=== PATIENT | female | born 1960 | race Caucasian/White ===

== ENCOUNTER 2016-04-11 11:28 | Inpatient (IN) ==
[2016-04-11 12:03] LABS: BE -0.6 mmoll (-3.0-3.0); BLOOD TYPE ARTERIAL; METHB 0.7 % (0.0-1.5); O2(CT) 7.6 mL/dL (15.0-23.0); SAMPLE BLOOD; SAO2 43.9 % (95.0-100.0); THB 12.6 g/dL (11.5-17.4)
--- NOTE | 2016-04-11 12:19 | PROVIDER DOCUMENTATION ---
HPI-Cardiopulmonary Arrest - General Source: patient, family (son) - History of Present Illness-C/P Arrest Reason for Code Blue?: full arrest Witnessed arrest?: Yes Noted by:: nurse Bystander CPR?: No CPR initiated before doctor arrival?: Yes Down-time before ACLS?: unknown Initial Findings: unresponsive Treatment initiated prior to doctor arrival?: Initiated CPR/thumper - Pre-hospital Treatment EMS Initial Findings:: alert EMS Initial HR: 70 EMS Initial BP: 150/72 <Shae Norman - Last Filed: 04/11/16 14:52> <Lm Rodriguez - Last Filed: 04/15/16 01:50> - General Chief Complaint: Shortness of Breath Stated Complaint: SOB/COLD SX Time Seen by Provider: 04/11/16 12:15 Allergies/Adverse Reactions: Allergies Allergy/AdvReac Type Severity Reaction Status Date / Time cephalexin monohydrate * Allergy Intermediate HIVES Verified 11/07/15 22:56 [From Keflex] latex AdvReac Intermediate RASH Verified 11/07/15 22:56 flody AdvReac Intermediate RASH Uncoded 04/11/16 17:22 Home Medications: Home Medication List Medication Instructions Recorded Confirmed Last Taken Type Aspirin 325 mg PO QPM 07/12/12 04/11/16 11/04/15 21:00 History SIMVAstatin [Zocor] 40 mg PO QHS 07/12/12 04/11/16 11/06/15 21:00 History Insulin Regular, Human [Novolin R] 5 unit SUBQ TID AC 11/20/12 04/11/16 20:00 History Ranolazine E.r. [Ranexa] 500 mg PO Q12H #0 tablet 11/24/12 04/11/16 11/06/15 21: 00 Rx LISINOpril [Prinivil] 10 mg PO QHS 11/01/13 04/11/16 11/06/15 21:00 History Hum Insulin NPH/Reg Insulin Hm 24 unit SQ BID 06/21/14 04/11/16 11/06/15 20:00 History [Novolin 70-30 100 Unit/ml Vial] Carvedilol Phosphate [Coreg Cr] 80 mg PO DAILY 08/16/14 04/11/16 11/06/15 09:00 History Clopidogrel [Plavix] 75 mg PO QAM #0 tablet 08/31/14 04/11/16 11/02/15 09:00 Rx Isosorbide Mononitrate E.r. [Imdur] 60 mg PO QAM #0 tablet 08/31/14 04/11/16 09:00 Rx Hydrocodone/APAP 10 mg/325 mg 1 each PO Q4H PRN PRN #30 tablet 07/25/15 Unknown Rx [Mobile-10] Penicillin V Potassium [Penicillin 500 mg PO BID 11/07/15 04/11/16 11/06/15 21: 00 History V Potassium] - History of Present Illness-C/P Arrest Initial Comments: Pt is 56 y/o F presents to the ED with SOB. Nurse states the Pt went to the bathroom and came back out and coded. Pt came in for SOB and dizziness. Pt is a dialysis patient. Pt had dialysis yesterday, April 10. Pt was intubated at 1148. Pt was given an epi at 1151. Compressions stopped at 1152 and no pulse felt per Dr. Rodriguez and compressions resumed. Pt was given another epi at 1156. Compression stopped at 1157 and faint pulse found per Dr. Rodriguez and compressions resumed. Pt was given an epi at 1200. Compressions were stopped at 1203 and pulse was found per Dr. Rodriguez. (Shae Norman) Review of Systems - Adult - REVIEW OF SYSTEMS - ADULT Constitutional: denies: chills, fever Eyes: denies: blurred vision, double vision Ears, Nose, Mouth & Throat: reports: other (tube in place). denies: ear pain, nose pain, throat pain Cardiovascular: denies: chest pain, heart murmur, irregular heart rate Respiratory: denies: cough, shortness of breath, wheezing Gastrointestinal: denies: abdominal pain, diarrhea, nausea, vomiting Genitourinary: denies: dysuria, hematuria Musculoskeletal: denies: bone pain, joint pain, neck pain Integumentary: denies: hives, itching, rash Neurological: denies: dizziness/vertigo, headache/migraines Psychiatric: reports: no symptoms reported Endocrine: reports: no symptoms reported Hematologic/Lymphatic: reports: no symptoms reported Allergic/Immunologic: reports: no symptoms reported All Other Systems: Reviewed and Negative <Prisca Normanomi - Last Filed: 04/11/16 14:52> Past History - Adult - PAST MEDICAL HISTORY-ADULT Review of Records: reports: Old Records Reviewed, Nursing Assessment Review, Medications Reviewed, Social history reviewed & non-contributory. Major Childhood Illnesses: reports: denies history Cardiovascular: reports: CAD, CHF, HTN, NM, other (Defibillator) Respiratory: reports: COPD Gastrointestinal: reports: denies history Obstetrical/Gynecological: reports: denies history Genitourinary: reports: kidney disease Musculoskeletal: reports: denies history Neurological: reports: denies history Endocrine/Immune: reports: Diabetes, thyroid disorder Other Conditions: reports: denies history - PRIOR SURGERIES/PROCEDURES Surgical/Procedure History: reports: cholecystectomy, cardiac stent, , tonsillectomy, other (defibillator) - PRIOR HOSPITALIZATIONS Prior Hospitalizations: reports: for similar symptoms - IMMUNIZATION STATUS Childhood Immunizations: See Nurse Assessment Flu Vaccine: See Nurse Assessment - FAMILY HISTORY Family History: reviewed, not pertinent - SOCIAL HISTORY Smoking: denies Substance Use: denies Living Situation: family <Prisca Normanomi - Last Filed: 04/11/16 14:52> Physical Exam-General - PHYSICAL EXAM-ADULT Initial Vital Signs Reviewed: Yes - CONSTITUTIONAL General Appearance: moderate distress. negative: appears well (ill in appearance), alert - EYES Eyes: PERRL/EOMI, fundi clear, no AV nicking, pale conjunctivae - HEAD, EARS, NOSE, MOUTH & THROAT HENMT: other (tube in place). negative: moist mucous membranes (dry) - NECK Neck: full range of motion, supple - RESPIRATORY Respiratory: other (tube in place. MERCHANDISING COORDINATOR give resp with ambu bag) - CARDIOVASCULAR Cardiovascular: normal peripheral pulses, regular rate, rhythm, no edema, no gallop, no JVD, no murmur - GASTROINTESTINAL (ABDOMEN) Abdominal Exam: normal bowel sounds, soft, no organomegaly, no pulsatile mass, distended - LYMPHATIC Lymphatic: no adenopathy - MUSCULOSKELETAL Extremity: no pedal edema, normal capillary refill, pelvis stable - SKIN Integumentary: cyanosis, pallor - PSYCHIATRIC Psych/Mental Status: negative: normal mood/affect, oriented x 3 <Shae Norman - Last Filed: 04/11/16 14:52> Progress - REASSESSMENT Reassessment #1 Time Reassessed: 12:49 Status: worsening (Compressions started at 1249 and epi given at 1241) Reassessment Comment: Pt pulse rate dropped. Dr. Rodriguez states give epi. Reassessment #2 Time Reassessed: 12:20 Status: worsening (Compressions started at 1221) Reassessment Comment: Pt pulse rate dropped Dr. Rodriguez at bedside - EKG 1 Time of EKG reading by physician:: 12:14 EKG Read and Signed by:: Lm Rodriguez EKG Interpretation (*Must complete 3 of following elements*): Abnormal Rate: 105 Rhythm: sinus tachycardia with fusion complexes Comments: left axis deviation; LBBB 2 Time of EKG reading by physician:: 14:27 EKG Read and Signed by:: Lm Rodriguez EKG Interpretation (*Must complete 3 of following elements*): Abnormal (cannot rule out septal infarct, age undetermined) Rate: 73 Rhythm: normal sinus rhythm Comments: left axis deviation; nonspecific intraventricular block - XRAY 1 XRAY: Bilateral XRAY Study: Chest Impression: Abnormal (generalized interstitial marking prominence, which may relate to inerstitial edema or interstitial pneumonitis) XRAY Interpretation: tip of endotracheal tube approximately 2.5 cm above the harriett - CONSULTS/PCP/HOSPITALIST Notification #1 *Consult/PCP/Hospitalist*: Dr. Martínez Time Discussed: 12:15 (Dr. Deleon states will look over Pt's results and will call back. ) Reason/Comments: Dr. Rodriguez consulted with Dr. Deleon about Pt Consult Disposition: other #2 Consult: Transfer Center Time Discussed: 13:19 (Transfer Center will call back with admiting doctor. ) Reason/Comments: Dr. Rodriguez consults with Transfer center about Pt Consult Disposition: other <Shae Norman - Last Filed: 04/11/16 14:52> <Lm Rodriguez - Last Filed: 04/15/16 01:50> - PLAN OF CARE/RESULTS Progress/Plan/Lab Results: Laboratory Tests 04/11/16 04/11/16 04/11/16 12:00 12:17 12:17 WBC 8.42 RBC 4.28 Hgb 13.4 Hct 43.3 MCV 101.2 H MCH 31.3 H MCHC 30.9 L RDW Std Deviation 14.1 Plt Count 93 L MPV 12.1 H Immature Gran % (Auto) 5.3 H Neut % (Auto) 46.6 Lymph % (Auto) 39.2 [place] % (Auto) 6.3 Eos % (Auto) 1.2 Baso % (Auto) 1.4 H Immature Gran # (Auto) 0.45 H Neut # (Auto) 3.92 Lymph # (Auto) 3.30 [place] # (Auto) 0.53 Eos # (Auto) 0.10 Baso # (Auto) 0.12 POC Glucose 234 H D Plasma Lactate 4.0 H Orders Category Date Time Status Saline Loc NOW Care 04/11/16 11:40 Active CHEST-PORTABLE [RAD] Stat Exams 04/11/16 11:40 Ordered ABG [RESP] Routine Lab 04/11/16 11:40 Ordered BLOOD CULTURE [BLDCUL] Stat Lab 04/11/16 11:40 Ordered BNP [PRO B-NATRIURETIC PEPTIDE] Stat Lab 04/11/16 12:38 Ordered CBC WITH DIFF [HEME] Stat Lab 04/11/16 12:17 Completed CK PROFILE [SP CHEM] Stat Lab 04/11/16 12:38 Ordered COMPREHENSIVE METABOLIC PANEL [CHEM] Stat Lab 04/11/16 12:17 Received LACTATE, PLASMA [CHEM] Stat Lab 04/11/16 12:17 Received MAGNESIUM [CHEM] Stat Lab 04/11/16 12:38 Ordered TROPONIN T Stat Lab 04/11/16 12:38 Ordered Dextrose 5%-0.45% NaCl Inj [D5 1/2 Ns] 250 ml Med 04/11/16 13:00 Active Norepinephrine [Levophed] 8 mg IV 2 mcg/min Pulse Oximetry Stat Oth 04/11/16 11:40 Active Vital Signs - 24 hr 04/11/16 11:35 Temperature 98.8 F Pulse Rate 70 Respiratory 20 Rate Blood Pressure 150/72 O2 Sat by Pulse 88 L Oximetry Laboratory Tests 04/11/16 04/11/16 04/11/16 12:00 12:17 12:17 WBC RBC Hgb Hct MCV MCH MCHC RDW Std Deviation Plt Count MPV Immature Gran % (Auto) Neut % (Auto) Lymph % (Auto) [place] % (Auto) Eos % (Auto) Baso % (Auto) Immature Gran # (Auto) Neut # (Auto) Lymph # (Auto) [place] # (Auto) Eos # (Auto) Baso # (Auto) Sodium 131 L Potassium 4.2 Chloride 93 L Carbon Dioxide 21 L Anion Gap 18 BUN 25 H Creatinine 3.0 H Estimated GFR/1.73 m2 16 BUN/Creatinine Ratio 8 Glucose 290 H POC Glucose 234 H D Calculated Osmolality 278 Calcium 11.1 H Total Bilirubin 0.90 AST 27 ALT 12 Alkaline Phosphatase 181 H Total Protein 6.7 Albumin 3.8 Globulin 3.0 Albumin/Globulin Ratio 1.0 Plasma Lactate 4.0 H 04/11/16 12:17 WBC 8.42 RBC 4.28 Hgb 13.4 Hct 43.3 MCV 101.2 H MCH 31.3 H MCHC 30.9 L RDW Std Deviation 14.1 Plt Count 93 L MPV 12.1 H Immature Gran % (Auto) 5.3 H Neut % (Auto) 46.6 Lymph % (Auto) 39.2 [place] % (Auto) 6.3 Eos % (Auto) 1.2 Baso % (Auto) 1.4 H Immature Gran # (Auto) 0.45 H Neut # (Auto) 3.92 Lymph # (Auto) 3.30 [place] # (Auto) 0.53 Eos # (Auto) 0.10 Baso # (Auto) 0.12 Sodium Potassium Chloride Carbon Dioxide Anion Gap BUN Creatinine Estimated GFR/1.73 m2 BUN/Creatinine Ratio Glucose POC Glucose Calculated Osmolality Calcium Total Bilirubin AST ALT Alkaline Phosphatase Total Protein Albumin Globulin Albumin/Globulin Ratio Plasma Lactate (Shae Norman) Procedures - INTUBATION Time of Intubation: 11:55 Airway Evaluation: Obese Intubation Method: orotracheal Equipment: ETT Tube Size (cm): 8.0 Pretreated with 100% Oxygen?: Yes Breath Sounds after Intubation: equal ETT Primary Tube Confirmation: Capnometry CO2 Change, Direct Visualization, Chest Rise and Fall Intubation Complications: no complications <Lm Rodriguez - Last Filed: 04/15/16 01:50> Departure - Departure Time of Disposition Order: 13:24 Certified Medical Emergency: Emergent <Shae Norman - Last Filed: 04/11/16 14:52> <Lm Rodriguez - Last Filed: 04/15/16 01:50> - Departure DIAGNOSIS: Cardiac arrest, Renal failure Diabetes Qualifiers: Diabetes mellitus type: other specified (including DANNY) Diabetes mellitus complication status: with unspecified complications Diabetes mellitus art department head insulin use: unspecified group home insulin use status Qualified Code(s): E13.8 - Other specified diabetes mellitus with unspecified complications CHF (congestive heart failure) Qualifiers: Congestive heart failure type: unspecified congestive heart failure type Congestive heart failure chronicity: unspecified congestive heart failure chronicity Qualified Code(s): I50.9 - Heart failure, unspecified Disposition: ADMITTED INPATIENT 09 Condition: Stable Attestation - Scribe Verification/Attestation Scribe:: Shae Norman Acting as Scribe for:: Lm Rodriguez Scribe documention review:: This chart was documented by a scribe and accurately reflects the service the provider performed and the decisions made by the provider. <Shae Norman - Last Filed: 04/11/16 14:52> Physician Attestation
[2016-04-11 12:21] LABS: BASO% 1.4 % (0.0-0.8); EOS% 1.2 % (0.0-10.0); HEMATOCRIT 43.3 % (37.0-47.0); HEMOGLOBIN 13.4 g/dL (12.0-16.0); IMM GRAN# 0.45 X1000 (0.0-0.04); IMM GRAN% 5.3 % (0.0-0.5); LYMPH% 39.2 % (20.5-51.1); MANUAL DIFF NEEDED? NO; MCH 31.3 PG (27-31); MCHC 30.9 g/dL (33-37); MCV 101.2 FL (81-99); MONO# 0.53 X1000 (0.11-0.59); MONO% 6.3 % (1.7-9.3); MPV 12.1 FL (7.4-10.4); NEUT% 46.6 % (42.2-75.2); PLT 93 X1000 (130-400); RBC 4.28 XMIL (4.2-5.4)
[2016-04-11] MEDS: LEVOPHED 8 MG in D5 1/2 NS 250 ML IV SCH (12:36)
[2016-04-11 12:42] LABS: ALBUMIN 3.8 g/dL (3.5-5.0); CALCIUM 11.1 mg/dL (8.8-10.2); POTASSIUM 4.2 mmol/L (3.5-5.1); TOTAL BILIRUBIN 0.9 mg/dL (0.20-1.00); TOTAL PROTEIN 6.7 g/dL (6.3-8.3)
--- NOTE | 2016-04-11 13:03 | Diag Imaging Result Document ---
PROCEDURE NAME: CHEST-PORTABLE - 04/11/2016 PORTABLE CHEST: COMPARISON: July 13, 2015. FINDINGS: There is an endotracheal tube with its tip with its tip approximately 2.5 cm above the harriett. There is a 2-lumen right internal jugular central venous catheter which extends to the right atrium. There is stable borderline to mild cardiomegaly. There is a transvenous permanent pacemaker again seen. There is some generalized interstitial marking prominence. This may related to interstitial edema or interstitial pneumonitis. There is no discrete dense consolidation, pleural effusion, or pneumothorax identified. IMPRESSION: 1. Tip of endotracheal tube approximately 2.5 cm above the harriett. 2. Generalized interstitial marking prominence, which may relate to interstitial edema or interstitial pneumonitis.
--- NOTE | 2016-04-11 13:05 | EKG Report ---
Test Performed on : 04/11/2016 12:14:20 PM Test Reason : ER Blood Pressure : / mmHG Vent. Rate : 105 BPM Atrial Rate : 107 BPM P-R Int : 208 ms QRS Dur : 142 ms QT Int : 376 ms P-R-T Axes : 000 -43 105 degrees QTc Int : 496 ms Sinus tachycardia. with fusion complexes Left axis deviation Left bundle branch block Abnormal ECG When compared with ECG of 09-JUL-2015 04:30, fusion complexes are now present premature supraventricular complexes. are no longer present Left bundle branch block is now present Criteria for Anterior infarct are no longer present Criteria for Anterolateral infarct are no longer present Unconfirmed Result
[2016-04-11 13:08] LABS: BE -7.5 mmoll (-3.0-3.0); BLOOD TYPE ARTERIAL; METHB 0.6 % (0.0-1.5); O2(CT) 16.5 mL/dL (15.0-23.0); PCO2(98.6) 43 mmHg (35-45); PO2(98.6) 65 mmHg (60-100); SAMPLE BLOOD; SAO2 89.9 % (95.0-100.0); THB 13.4 g/dL (11.5-17.4); pH(98.6) 7.26 (7.35-7.45)
[2016-04-11 13:12] LABS: MODALITY AMBU BAG
[2016-04-11 13:13] LABS: DRAW SITE L BRACHIAL
[2016-04-11 13:17] LABS: INR 1.19 (0.86-1.15); PROTIME 15.4 Seconds (12.1-15.5); PTT PL 44.1 Seconds (22.6-43.9)
[2016-04-11 13:55] LABS: DRAW SITE R FEMORAL
[2016-04-11 13:56] LABS: ALLEN TEST NO; MODALITY RESUSC BAG; PCO2(98.6) 54 mmHg (35-45); PO2(98.6) 30 mmHg (60-100)
--- NOTE | 2016-04-11 14:52 | EKG Report ---
Test Performed on : 04/11/2016 2:27:18 PM Test Reason : repeat Blood Pressure : / mmHG Vent. Rate : 073 BPM Atrial Rate : 073 BPM P-R Int : 188 ms QRS Dur : 126 ms QT Int : 460 ms P-R-T Axes : 041 -37 104 degrees QTc Int : 506 ms Normal sinus rhythm. Left axis deviation Nonspecific intraventricular block Cannot rule out Septal infarct , age undetermined Abnormal ECG When compared with ECG of 11-APR-2016 12:14, (Unconfirmed) fusion complexes are no longer present Nonspecific intraventricular block has replaced Left bundle branch block Confirmed by Tanner Castañeda MD ([id number]) on 04/22/2016 9:11:06 PM
[2016-04-11] MEDS ORDERED: NS 2,000 ML MISC PRN (14:59)
[2016-04-11] MEDS ORDERED: TIGHT: 0.2 ML/HR MISC PRN (14:59)
[2016-04-11] MEDS ORDERED: HEPARIN IV PRN (14:59)
[2016-04-11] MEDS ORDERED: DUONEB (A & A) INH PRN (15:01)
[2016-04-11] MEDS ORDERED: NS 2,000 ML ONE ×2 (15:17→20:38)
[2016-04-11] MEDS ORDERED: ATIVAN ONE (15:35)
[2016-04-11] MEDS ORDERED: ATIVAN IV ONE (15:48)
[2016-04-11] MEDS: DUONEB (A & A) INH SCH ×3 (16:13→23:36)
[2016-04-11] MEDS: ATIVAN 20 MG in NS 190 ML IV SCH (16:13)
[2016-04-11] MEDS: ZOSYN 2.25 GM/NS 50 ML IV SCH ×2 (16:16→21:24)
[2016-04-11] MEDS: PROTONIX IV SCH (16:16)
[2016-04-11] MEDS: SODIUM CHLORIDE 0.9% INJ SCH (16:16)
[2016-04-11 17:14] LABS: CK INDEX 3.7 (0.0-2.5); CK-MB 7.87 ng/mL (0.0-5.0)
--- NOTE | 2016-04-11 17:21 | CONSULTATION ---
DATE OF CONSULTATION: 04/11/2016 HISTORY OF PRESENT ILLNESS: History was obtained by discussing with staff as well as well as Dr. Corea and patient's . The patient is intubated. A 56-year-old lady with multiple medical problems, cardiac with coronary artery disease, ischemic cardiomyopathy, AICD placement, has been having upper respiratory tract infection with mucoid to mucopurulent expectoration over the last couple of weeks. She was given Levaquin and symptoms of congestion improved slightly, however she still had congestion. She has been undergoing dialysis on a regular basis. Today she was in the emergency room in [facility] when she had a cardiac arrest pulseless and CPR was initiated per standard protocol. The patient was subsequently transferred to [facility]. Electrocardiogram did not reveal any acute ST elevations. Patient is undergoing dialysis. Was hypertensive, is started on Levophed. At the time of my examination blood pressure was 160/80, heart rate 73. REVIEW OF SYSTEMS: Could not be obtained. PAST MEDICAL HISTORY: 1. Coronary artery disease. In 2003 had LAD with PTCA stent placement to the LAD and in 2006 had a bare metal stent to the right coronary artery. 2. Last cardiac catheterization 11/23/2012, LAD had proximal 50%, LAD subsequently was occluded in the midsegment at the site of previous stent. There was a large septal branch involving the lesion from the occlusion and an ostial 80% 1st diagonal, proximal 60%, circumflex has mild to moderate diffuse disease, mid 60% RCA, 50% disease dilatation, mid stent had slight in-stent stenosis with hazy 50-60% lesion. Medical management recommended at that time. 3. Ischemic cardiomyopathy, ejection fraction of 35-40%. 4. AICD placement with [facility] on 09/08/2016 with a generator change on 08/17/2014. 5. Hypertension, hyperlipidemia. 6. Mild aortic stenosis. 7. Diabetes. 8. End-stage renal disease on dialysis. 9. TIA status post carotid Dopplers revealed 0-30% stenosis in 2011. 10. History of DVT in 2012. 11. Cellulitis of lower extremities secondary to cellulitis and sepsis in 2015. 12. Obesity. MEDICATIONS: Included 1. Humulin. 2. Aspirin 325. 3. Lisinopril 10. 4. Simvastatin 40. 5. Isosorbide mononitrate. 6. Plavix 75. 7. Ranexa 500. 8. Coreg CR. ALLERGIES: She is allergic to Neosporin and Keflex. SOCIAL HISTORY: She is a nonsmoker. EXAMINATION: Vital Signs: As above. Jugular venous pressure was normal, 1st and second heart sounds were heard. There was systolic murmur. Respiratory System: Bibasilar inspiratory crepitations. Abdomen: Soft. Central nervous system: Could not be assessed. LABORATORY EXAMINATION: Revealed hemoglobin 13.4, hematocrit 43, platelet count of 93,000. Sodium 131, potassium 4.2, BUN 25, creatinine 3.0, glucose 290. Blood cultures pending. Chest x-ray revealed increase interstitial markings, interstitial edema or pneumonitis. Troponin 1st set 0.048, second set 0.118 in the setting of chronic renal failure. ProBNP elevated at greater than 35,000. ASSESSMENT: Ms. Yvrose Valadez is a 56-year-old lady with known coronary artery disease, left ventricular dysfunction and implantable cardioverter defibrillator placement. Had a cardiac arrest probably pulseless electrical activity and is currently on Levophed, has a blood pressure and heart rate which has been stable. PLAN: 1. The event she had is probably related to ischemia and/or dysrhythmias. She has an AICD. 2. We will have her AICD interrogated. 3. We will get an echocardiogram to assess cardiac and valvular function. 4. We will get serial cardiac enzymes 4 more sets. 5. Currently her blood pressure and heart rate are stable. I have not done any changes to her medication. We will follow hospital course. 6. We will get an echocardiogram to assess cardiac and valvular function. In addition, she has had history of DVT. This episode may be related to thromboembolic phenomena as well low likelihood but we will get venous Dopplers. 7. She is undergoing dialysis and her electrolytes have been stable. 8. She has significant coronary artery disease and we will plan for further testing once she is stable and depending on outcome. 9. She had venous congestion with cough with mucopurulent expectoration and was treated with Levaquin and blood cultures are pending at the present time. Thank you for the consult. Will follow hospital course.
--- NOTE | 2016-04-11 18:03 | HISTORY AND PHYSICAL ---
CHIEF COMPLAINT: Was initially shortness of breath, subsequently she is status post cardiac arrest x3. HISTORY OF PRESENT ILLNESS: She is a 56-year-old female, she came in awake and alert. The patient came in with shortness of breath. Apparently the patient went to go to the bathroom while in the ER and came back and passed out. She is a dialysis patient. She was only dialyzed reportedly 1.2-1.8 L. She was dialyzed the day before admission. She had 3 separate events of cardiac arrest initially around 11:48. She was intubated. She was given epinephrine at 11:51. Compressions were stopped and then resumed. At 11:56 she was given another dose of epinephrine. At that point she was placed on Levophed. Code looks like it lasted 11:48 to 12 :03. The patient is now awake and alert. Does follow some commands. Patient had 2 other episodes and she was stabilized. The patient does have a significant cardiac history as well as COPD. She is end- stage renal. Her chest x-ray looks like she has interstitial edema, cardiomegaly, but she has got right upper lobe airspace disease, possibly right lower lobe. I think she may have infection despite the fact she is afebrile and has no white count. The patient is being transferred to [facility] [place] for ICU care, dialysis, services not available at [place]. Dr. Corea will be assuming care at that facility. PAST MEDICAL HISTORY: 1. CAD. 2. CHF. 3. Hypertension. 4. Defibrillator. 5. COPD. 6. End-stage renal. 7. Diabetes. 8. Hypothyroidism. PAST SURGICAL HISTORY: 1. Graft AICD placement. 2. Cholecystectomy. 3. Debridement. 4. . 5. Tonsillectomy. SOCIAL HISTORY: No tobacco or ethanol. ALLERGIES: Keflex and latex. MEDICATION LIST: Being compiled. REVIEW OF SYSTEMS: Otherwise negative except as outlined in the HPI. PHYSICAL EXAMINATION: VITAL SIGNS: Currently blood pressure 145/71, heart rate 75, respiratory rate of 14, temperature 97.4 degrees, 99%-100%, vent settings have been put in. GENERAL: A well-developed female, in no acute distress. HEAD: Normocephalic, atraumatic. EYES: Pupils equal, round, reactive to light. Extraocular movements are intact. EAR/NOSE/THROAT: She had moist mucous membranes. NECK: Supple. CARDIOVASCULAR: Irregular regular. PULMONARY: Diffuse rhonchi. GI: Soft, nontender, and nondistended. Bowel sounds are positive. EXTREMITIES: No clubbing or cyanosis. LYMPHATICS: No peripheral edema. NEUROLOGICAL: Nonfocal. LABORATORY DATA: White count of 8, hemoglobin and hematocrit 13 and 41, platelets of 93,000, which is a significant drop from baseline from her chemistries. Troponin 0.188. BUN and creatinine 25 and 3. Calcium of 11. BNP of 35,000. EKG showed sinus tach with IVSD, looks like a left bundle, I do not think that is a new finding for her. Yes, she has had a left bundle before. Left bundle apparently was not noted, but she had nearly enough left bundle in July, but that was 2014. In any case, PROBLEM LIST: 1. Acute respiratory failure secondary to volume overload. 2. Possible pneumonia. 3. Acute respiratory failure - She is on the ventilator. I anticipate she will need emergent dialysis. I am going to empirically cover her with Zosyn at this point. Although she does not have a white count, I think she may have developed an infiltrate. We will get Pulmonary opinion on ventilatory management. 4. Congestive heart failure exacerbation. We will check serial enzymes. She did get CPR so this may not be as meaningful. Repeat her echo and follow. Cardiology is consulted. 5. End-stage renal. Dialysis will be per Renal Service. They have been consulted. We will continue to follow very closely. The patient is critically ill. TIME SPENT: 35 minute critical care time. MTDD
[2016-04-11] MEDS: HUMALOG SUBQ SCH ×2 (18:10→21:24)
[2016-04-11 18:13] LABS: ALLEN TEST YES; BE -2.3 mmoll (-3.0-3.0); BLOOD TYPE ARTERIAL; DRAW SITE L RADIAL; METHB 1.2 % (0.0-1.5); O2(CT) 18.2 mL/dL (15.0-23.0); PCO2(98.6) 38 mmHg (35-45); PO2(98.6) 59 mmHg (60-100); SAMPLE BLOOD; SRATE 14 BPM; THB 14.5 g/dL (11.5-17.4); TVOL 600 mL; pH(98.6) 7.38 (7.35-7.45)
[2016-04-11 18:15] LABS: MODALITY VENTILATOR
[2016-04-11] MEDS ORDERED: SODIUM BICARBONATE 8.4% ONE (18:30)
[2016-04-11] MEDS ORDERED: NS ONE (18:30)
[2016-04-11] MEDS ORDERED: D50W SYRINGE ONE (18:30)
[2016-04-11] MEDS ORDERED: CALCIUM CHLORIDE SYRINGE ONE (18:30)
[2016-04-11] MEDS ORDERED: EPINEPHRINE SYRINGE ONE (18:30)
--- NOTE | 2016-04-11 19:37 | CONSULTATION ---
DATE OF CONSULTATION: 04/11/2016 PULMONARY CONSULTATION REQUESTING PHYSICIAN: Manuel Linares M.D. REASON FOR CONSULTATION: Status post cardiopulmonary arrest. HISTORY OF PRESENT ILLNESS: Ms. Valadez is a 56-year-old white female with multivessel coronary artery disease, ischemic cardiomyopathy, end-stage renal disease on hemodialysis, status post AICD placement, who presented to [facility] with shortness of breath. The patient had not missed her dialysis. The patient was returning from the bathroom when she sustained cardiopulmonary arrest. The patient received multiple courses of epinephrine along with CPR. She was intubated and her blood pressure and heart rhythm were stabilized. Rhythm preceding this CPR is not clear because most no strips were available for review. Exact time of CPR is difficult to document. Upon arrival to [facility], patient apparently attempted to remove the endotracheal tube and would squeeze hand to command. The patient has subsequently completed hemodialysis with approximately 4 L removed. PAST MEDICAL HISTORY: 1. Extensive coronary artery disease with prior stent placements. Please see Juan's note which was reviewed. 2. Ischemic cardiomyopathy. 3. Status post AICD placement. 4. History of deep vein thrombosis. 5. Diabetes mellitus. 6. Morbid obesity. 7. End-stage renal disease on hemodialysis. SOCIAL HISTORY: The patient is a never smoker. Alcohol use listed. FAMILY HISTORY: Noncontributory to current presentation. REVIEW OF SYSTEMS: Cannot be obtained. PHYSICAL EXAMINATION: General: Reveals an obese, white female on mechanical ventilation. She appears much older than her stated age. Vital Signs: BP 160/77 on vasopressors. Heart rate 77 and regular, respiration rate 14, oxygen saturation 100%. BMI 44.4. HEENT: Pupils are equal but sluggish. Oropharynx is clear but evaluation is limited with endotracheal tube in place. Neck: Supple. Chest: Reveals good air entry bilaterally. Cardiac Examination: Distant heart sounds. Regular rhythm. Abdomen: Obese and soft. Extremities: Reveal chronic edema with some venous stasis changes. LABORATORIES: Chest x-ray reveals endotracheal tube in good position. Arterial blood gas reveals a pH 7.38, pCO2 of 38, PO2 of 59, on 50% FiO2, rate of 14, tidal volume 600, PEEP of 7. White blood count 8.42, hemoglobin 13.4. Chemistries: proBNP is markedly elevated at greater than 35,000. Troponin has had sequential increase from 0.048 to 0.118 to 0.212. D-dimer elevated at 2.52. IMPRESSION: A 56-year-old with end-stage renal disease, ischemic cardiomyopathy, morbid obesity, prior deep vein thrombosis, positive D-dimer who has sustained a cardiopulmonary arrest. The nurse at the bedside reports that Dr. Martinez has interrogated the AICD and no etiology for cardiac arrest has been identified from a cardiac standpoint. With her acute cardiac arrest, hypoxemic and hypercapnic acute respiratory failure, I recommend proceeding with CT pulmonary angiogram. RECOMMENDATIONS: 1. Continue full ventilatory support. 2. Maintain oxygen saturation between 92 and 96%. 3. CT pulmonary angiogram. 4. Routine gastric acid suppression. 5. Sputum for C and S. 6. Additional recommendations pending hospital course.
[2016-04-11 20:52] LABS: CK INDEX 3.5 (0.0-2.5); CK-MB 8.18 ng/mL (0.0-5.0)
[2016-04-11] MEDS ORDERED: COREG PO SCH (21:00)
[2016-04-11] MEDS ORDERED: HEPARIN SUBQ SCH (21:00)
[2016-04-11] MEDS ORDERED: HUMULIN R SUBQ SCH ×2 (21:00)
[2016-04-11 22:24] LABS: CK INDEX 3.2 (0.0-2.5); CK-MB 7.76 ng/mL (0.0-5.0)
[2016-04-12 02:05] LABS: CK INDEX 2.4 (0.0-2.5); CK-MB 7.66 ng/mL (0.0-5.0)
[2016-04-12] MEDS: HUMALOG SUBQ SCH ×6 (02:07→20:25)
[2016-04-12] MEDS: ATIVAN 20 MG in NS 190 ML IV SCH ×2 (02:16→13:18)
[2016-04-12] MEDS: ZOSYN 2.25 GM/NS 50 ML IV SCH ×4 (03:05→20:11)
[2016-04-12] MEDS: DUONEB (A & A) INH SCH ×6 (03:14→22:32)
[2016-04-12 04:47] LABS: ALLEN TEST YES; BE 0.1 mmoll (-3.0-3.0); BLOOD TYPE ARTERIAL; DRAW SITE R RADIAL; METHB 0.9 % (0.0-1.5); O2(CT) 17.7 mL/dL (15.0-23.0); PCO2(98.6) 39 mmHg (35-45); PO2(98.6) 116 mmHg (60-100); SAMPLE BLOOD; SAO2 98.5 % (95.0-100.0); SRATE 14 BPM; TVOL 600 mL; pH(98.6) 7.41 (7.35-7.45)
[2016-04-12 04:48] LABS: MODALITY VENTILATOR
[2016-04-12 05:14] LABS: ALBUMIN 2.6 g/dL (3.5-5.0); CALCIUM 8.7 mg/dL (8.8-10.2); POTASSIUM 4.8 mmol/L (3.5-5.1)
--- NOTE | 2016-04-12 06:52 | Diag Imaging Result Document ---
PROCEDURE NAME: HEAD W/O CONTRAST - 04/11/2016 CT HEAD WITHOUT CONTRAST: COMPARISON: None available. FINDINGS: There is mild patchy low attenuation in the periventricular and subcortical white matter suggesting mild microangiopathy. There is no definite acute infarct given the limited sensitivity of CT versus MRI. There is no discrete intracranial mass, mass effect, or intracranial hemorrhage. There is no evidence of hydrocephalus. Surrounding soft tissues are grossly unremarkable. There is fairly extensive left maxillary and left frontal sinus mucosal disease and milder bilateral ethmoid sinus mucosal disease. IMPRESSION: 1. Chronic-appearing white matter changes but no evidence of acute intracranial pathology by CT. 2. Paranasal sinus mucosal disease.
--- NOTE | 2016-04-12 06:52 | Diag Imaging Result Document ---
PROCEDURE NAME: ANGIOGRAM/PULMONARY ARTERIES - 04/11/2016 CTA CHEST: COMPARISON: None available. FINDINGS: There is excessive respiratory motion artifact. This significantly limits the sensitivity for detecting small pulmonary emboli, especially at the lung bases. However, no large central pulmonary embolus can be identified. There is patchy aortic atherosclerotic calcification. There is no evidence of aortic aneurysm. There is extensive coronary artery calcification. There is cardiomegaly. An ET tube is in place just above the harriett. There are shotty nonspecific mediastinal and hilar lymph nodes. No significant mediastinal fluid collection is identified. There are dense patchy infiltrates seen throughout both lungs but more extensive on the right. This is probably a combination of infectious infiltrates and pulmonary edema. ARDS cannot be excluded. There are small bilateral pleural effusions as well as bibasilar atelectasis. IMPRESSION: 1. Extensive dense patchy infiltrates seen throughout both lungs but worst on the right. Please see above discussion. Infectious infiltrate and possibly ARDS should be considered. 2. Small bilateral effusions and bibasilar atelectasis. 3. Cardiomegaly. 4. Although very limited due to excessive respiratory motion artifact, no large central pulmonary embolism can be identified. Smaller emboli at the distal pulmonary artery branches may not be detectable. 5. Other incidental/nonacute findings detailed above.
[2016-04-12 07:05] LABS: MANUAL DIFF NEEDED? NO
[2016-04-12 07:15] LABS: BASO% 0.2 % (0.0-0.8); EOS# 0.01 X1000 (0.0-0.7); EOS% 0.1 % (0.0-10.0); HEMATOCRIT 38.1 % (37.0-47.0); HEMOGLOBIN 12.3 g/dL (12.0-16.0); IMM GRAN# 0.04 X1000 (0.0-0.04); IMM GRAN% 0.4 % (0.0-0.5); LYMPH% 9.9 % (20.5-51.1); MCH 31.9 PG (27-31); MCHC 32.3 g/dL (33-37); MCV 98.7 FL (81-99); MONO# 0.78 X1000 (0.11-0.59); MONO% 8.6 % (1.7-9.3); NEUT% 80.8 % (42.2-75.2); PLT 89 X1000 (130-400); RBC 3.86 XMIL (4.2-5.4)
[2016-04-12 07:58] LABS: CK INDEX 2.1 (0.0-2.5); CK-MB 7.54 ng/mL (0.0-5.0)
[2016-04-12] MEDS ORDERED: NS 3,000 ML ONE (08:11)
--- NOTE | 2016-04-12 08:38 | Diag Imaging Result Document ---
PROCEDURE NAME: CHEST-PORTABLE - 04/12/2016 SINGLE FRONTAL RADIOGRAPH OF THE CHEST: COMPARISON: 04/11/2016. FINDINGS: ET tube is stable. Right Vas cath is stable. Inspiration is suboptimal. Increased interstitial markings bilaterally, suggesting edema, most likely, plus or minus pneumonia, is approximately stable. No new consolidation is identified. Cardiac silhouette is stable. IMPRESSION: Essentially stable chest.
[2016-04-12] MEDS ORDERED: PLAVIX PO SCH (09:00)
[2016-04-12] MEDS ORDERED: NS 2,000 ML ONE (11:07)
[2016-04-12] MEDS: LOVENOX SUBQ SCH (11:13)
--- NOTE | 2016-04-12 11:39 | PROGRESS NOTE ---
DATE: 04/12/2016 SUBJECTIVE: The patient did well through the night. Stayed in sinus rhythm. Dropped her blood pressure a little bit when we started dialysis this morning. We put her back on her Levophed. OBJECTIVE: She remains afebrile, temperature 94.5, pulse 56, respirations 28, blood pressure 118/75. Lungs are clear in all lung reveles. Cardiovascular: Regular rate and rhythm without murmur or S3. Abdomen: Soft. Skin is warm and dry. Good urine output, 4418 mL. DIAGNOSTIC DATA: Labs reviewed from this morning. White count is 9070, hematocrit 38, platelet count 89,000. Chemistries looked good, sodium 133, potassium 4.8, chloride 94, bicarb 20, BUN is 38, creatinine 3.3, blood sugar is 123, 113 and 124, so it looked good. Chest x-ray from this morning essentially stable chest. ET tube is stable. Right Vas-Cath stable. Inspiration suboptimal, increased interstitial markings bilaterally suggesting edema, likely plus or minus pneumonia, approximately stable. No new consolidation. ASSESSMENT AND PLAN: 1. This is a 57 year old with multivessel coronary artery disease, ischemic cardiomyopathy, end stage renal disease on hemodialysis, status post AICD placement, who presented to [place] and went into respiratory failure. She is complaining of shortness of breath. The patient had not missed her dialysis. She had cardiopulmonary arrest at [place] and was sent over here. She has a history of prior deep venous thrombosis with positive D-dimer. Apparently Dr. Martinez has interrogated the AICD, no etiology for cardiac arrest, arrhythmia or ventricular tachycardia noted. So she had a cardiac arrest, hypoxemic and hypercapnic acute respiratory failure. Wanted Dr. Kaye to proceed with CT, pulmonary angiogram. Continue full ventilatory support, maintain oxygen saturation 92% to 96%. See if we can get a CT angiogram. Routine gastric acid suppression. CT of her head from yesterday was unremarkable. 2. End stage renal disease. Continue hemodialysis. Appears to have pulmonary venous hypertension. Continue to try and hemofiltrate and get some fluid off. 3. Nasal sinus mucosal thickening and also treating for pneumonia. Continue present antibiotics. The patient is on Zosyn, Protonix 40 mg q.24 hours.
[2016-04-12 13:59] LABS: CK-MB 6.52 ng/mL (0.0-5.0)
[2016-04-12] MEDS: LEVOPHED 8 MG in D5 1/2 NS 250 ML IV SCH (14:24)
--- NOTE | 2016-04-12 14:52 | CONSULTATION ---
DATE OF CONSULTATION: 04/12/2016 REASON FOR CONSULTATION: Evaluation and in treatment in a patient with respiratory failure and end-stage renal disease. HISTORY OF PRESENT ILLNESS: Ms Valadez is a 56-year-old, white female. I saw her on Thursday at her routine dialysis appointment. At that time, she was complaining of a cough and posterior nasal drip as well. She had actually been treated with Levaquin by her primary care doctor and really derived no benefit from that, and had called our office on Thursday evening asking for new treatment. I had declined to give another antibiotic until I could talk with her on rounds. She has not been having fever, just coughing severely, and it happens in the daytime and at nighttime. She does have sputum production which she states she can differentiate from when it comes from her chest versus when it comes firmer her sinuses. No chest pain. She does have some dyspnea with exertion. At that time, I recommended symptomatic treatment for her upper airway symptoms, but that if she needed another antibiotic, she needed to go to the emergency room and be evaluated with a chest x-ray, etc. She presented to [place] [facility] on Thursday where she was awake and alert, but complained of shortness of breath. Apparently she got up and went to the bathroom, and on return lost consciousness. This led to subsequent cardiac arrest and she had multiple episodes of treatment with chest compressions and resuscitation medications, including epinephrine. She was intubated of course. Because of her severe medical illness, she was transferred from [place] to [facility] ICU. She was evaluated by Dr. Kaye, who had concern about pulmonary embolus given her history of DVT and PTE. CT of the chest was performed. This study was of inadequate quality to differentiate presence of pulmonary emboli. She had dense patchy infiltrates and small effusions. No description of pulmonary edema per se. In this context, she has been treated with empiric broad-spectrum antibiotics, full vent support, sedation as needed. We performed hemodialysis yesterday and achieved 4 L of fluid removal. This morning, she is placed on SLEDD and is thus far dialyzed for 3 hours and had 1 L of ultrafiltration. Difficulty with her blood flow has resulted in clotting of the filter. PAST MEDICAL HISTORY: 1. Obesity. 2. End-stage renal disease. 3. Diabetes. 4. Coronary artery disease. 5. Implantable defibrillator. 6. COPD. HOME MEDICATIONS: Simvastatin, aspirin, insulin, Ranexa, lisinopril, carvedilol, clopidogrel, isosorbide, hydrocodone, pen-VK. ALLERGIES: Cephalexin and latex. SOCIAL HISTORY/REVIEW OF SYSTEMS/FAMILY HISTORY: Not otherwise obtainable at this time. PHYSICAL EXAMINATION: Vital Signs: Blood pressure 159/82 on Levophed, heart rate 62, respirations 14, afebrile. General: She is an obese, white female, sedated on the ventilator. Skin: Warm and dry. Eyes: Conjunctivae are pink and somewhat edematous. Pupils are equal, 2 mm. Eyes are roving. Mouth: Oropharynx is clear, moist. Neck: Neck veins are not visible. Trachea is midline. Heart: Regular without gallops or murmurs. Lungs: Have equal breath sounds. A few diffuse crackles. Abdomen: Obese and soft. Bowel sounds are present. No organomegaly or masses or bruits. Extremities: Have 1+ to 2+ edema. No clubbing or cyanosis. Edema is certainly better than baseline. LABORATORY DATA: Sodium 133, potassium 4.8, chloride 97, bicarbonate 20, BUN 38, creatinine 3.3. IMPRESSION: 1. End-stage kidney disease. Dialysis as above. We will discontinue her hemodialysis today and instill cath flow in her hemodialysis catheter. 2. Electrolytes are acceptable. 3. Acid base, in target. 4. Respiratory failure. Oxygenation is improved on the ventilator. 5. Status post cardiac arrest. Continue supportive care.
[2016-04-12] MEDS: SODIUM CHLORIDE 0.9% INJ SCH (15:39)
[2016-04-12] MEDS: PROTONIX IV SCH (15:39)
[2016-04-13] MEDS: ATIVAN 20 MG in NS 190 ML IV SCH (00:41)
[2016-04-13] MEDS: HUMALOG SUBQ SCH ×6 (02:00→21:15)
[2016-04-13] MEDS: ZOSYN 2.25 GM/NS 50 ML IV SCH ×4 (03:02→21:15)
[2016-04-13] MEDS: DUONEB (A & A) INH SCH ×6 (03:13→22:40)
[2016-04-13 04:33] LABS: ALLEN TEST YES; BE -4.7 mmoll (-3.0-3.0); BLOOD TYPE ARTERIAL; DRAW SITE R RADIAL; METHB 1.4 % (0.0-1.5); O2(CT) 14.6 mL/dL (15.0-23.0); PCO2(98.6) 30 mmHg (35-45); PO2(98.6) 168 mmHg (60-100); SAMPLE BLOOD; SAO2 98.3 % (95.0-100.0); SRATE 14 BPM; THB 10.6 g/dL (11.5-17.4); TVOL 600 mL; pH(98.6) 7.41 (7.35-7.45)
[2016-04-13 04:34] LABS: MODALITY VENTILATOR
[2016-04-13 05:49] LABS: MANUAL DIFF NEEDED? NO
[2016-04-13 06:06] LABS: BASO% 0.3 % (0.0-0.8); EOS# 0.07 X1000 (0.0-0.7); EOS% 0.9 % (0.0-10.0); HEMATOCRIT 33.5 % (37.0-47.0); HEMOGLOBIN 10.6 g/dL (12.0-16.0); IMM GRAN# 0.03 X1000 (0.0-0.04); IMM GRAN% 0.4 % (0.0-0.5); LYMPH# 1.01 X1000 (1.2-3.4); MCH 31.7 PG (27-31); MCHC 31.6 g/dL (33-37); MCV 100.3 FL (81-99); MONO# 0.64 X1000 (0.11-0.59); MONO% 8.3 % (1.7-9.3); MPV 12.7 FL (7.4-10.4); NEUT% 77.1 % (42.2-75.2); PLT 92 X1000 (130-400); RBC 3.34 XMIL (4.2-5.4)
--- NOTE | 2016-04-13 08:48 | PROGRESS NOTE ---
DATE: 04/13/2016 SUBJECTIVE: Ms. Valadez is comfortable, resting comfortably. Appears to be breathing comfortably, intubated. PHYSICAL EXAMINATION: Vital Signs: Temperature 98.2, pulse 70, respirations 20, blood pressure 120/56. HEENT: Pupils are equal and reactive. CVP is less than 6 cm. Lungs: Anterolateral clear. Cardiovascular Examination: Regular rhythm and rate without murmur or S3. Abdomen: Soft. Skin: Warm and dry. Is and Os: Urine output was 1200 and 1300 mL. LABORATORY DATA: White count 7750, hematocrit 33, platelet count 92,000. Blood sugars 125, 117, 147. ASSESSMENT AND PLAN: 1. End-stage kidney disease. Continue dialysis. Try and decrease pulmonary venous hypertension. 2. Status post arrest, sounds like it was predominantly respiratory arrest. On the ventilator, wean as able. 3. Electrolytes appear stable. Recheck. 4. We did obtain an echocardiogram to assess left ventricular function. 5. History of coronary artery disease. 6. I presume she may have had some active ischemia during this event. We will plan on further testing when able. 7. Review of orders. She is still on Zosyn, breathing treatments with albuterol, Protonix 40 mg intravenous every 24 hours. Note, she had a pulmonary arteriogram on the . A dense patchy infiltrate was seen through both lungs but worse on the right. Infectious process, possible acute respiratory distress syndrome to be considered. Small bilateral pleural effusions, bibasilar atelectasis. No sign of pulmonary thromboemboli. Chest x-ray from yesterday, essentially stable chest.
[2016-04-13 08:57] LABS: MANUAL DIFF NEEDED? NO
[2016-04-13 09:22] LABS: BASO% 0.3 % (0.0-0.8); EOS# 0.05 X1000 (0.0-0.7); EOS% 0.7 % (0.0-10.0); HEMATOCRIT 34.1 % (37.0-47.0); HEMOGLOBIN 10.8 g/dL (12.0-16.0); IMM GRAN# 0.03 X1000 (0.0-0.04); IMM GRAN% 0.4 % (0.0-0.5); LYMPH# 1.06 X1000 (1.2-3.4); LYMPH% 15.4 % (20.5-51.1); MCH 31.6 PG (27-31); MCHC 31.7 g/dL (33-37); MCV 99.7 FL (81-99); MONO# 0.67 X1000 (0.11-0.59); MONO% 9.7 % (1.7-9.3); MPV 12.1 FL (7.4-10.4); NEUT% 73.5 % (42.2-75.2); PLT 84 X1000 (130-400); RBC 3.42 XMIL (4.2-5.4)
[2016-04-13] MEDS: LOVENOX SUBQ SCH (09:25)
[2016-04-13 09:27] LABS: ALBUMIN 2.7 g/dL (3.5-5.0); CALCIUM 8.5 mg/dL (8.8-10.2); POTASSIUM 4.3 mmol/L (3.5-5.1); TOTAL BILIRUBIN 1.01 mg/dL (0.20-1.00); TOTAL PROTEIN 5.3 g/dL (6.3-8.3)
--- NOTE | 2016-04-13 10:18 | Diag Imaging Result Document ---
PROCEDURE NAME: CHEST-PORTABLE - 04/13/2016 SINGLE FRONTAL RADIOGRAPH OF THE CHEST: COMPARISON: 04/12/2016. FINDINGS: ET tube is in stable position. Right vas cath is stable. Inspiration is suboptimal. Bilateral infiltrates, more prominent on the right is again noted. There may be a slight increase in density at the right lung base suggesting worsening infiltrate. This may be due to differences in inspiration, however. No other new consolidation is identified. Cardiac silhouette is stable. IMPRESSION: Slight increase in density of the infiltrate at the right lung base. The chest is stable otherwise.
[2016-04-13] MEDS: DIPRIVAN 1% 100 ML IV SCH ×2 (10:20→22:02)
--- NOTE | 2016-04-13 11:14 | ECHO REPORT ---
ORDER DATE: 04/12/2016 ECHOCARDIOGRAPHIC MEASUREMENTS: 1. Interventricular septum 0.8, left ventricular posterior wall 0.8, diastolic diameter 5.8, left atrium 3.6, aorta 3.2. 2. Left ventricle is mildly dilated with an estimated ejection fraction of 35%. There is global hypokinesis. In addition, there is apical akinesis. 3. Aortic valve leaflets are trileaflet. Mitral valve was normal. Tricuspid valve was normal. Pulmonic valve was normal. 4. There is no aortic stenosis. There is trace aortic regurgitation. There is mild mitral regurgitation. 5. There is mitral annular calcification. 6. Mild tricuspid regurgitation. Peak velocity across the tricuspid valve was 2.8 m/sec. Pulmonary artery systolic pressure of 42 mmHg. 7. Pacing leads are noted in the right chamber. 8. There is no pericardial effusion or obvious intracardiac mass or thrombus seen.
[2016-04-13] MEDS: PROTONIX IV SCH (15:21)
[2016-04-13] MEDS: SODIUM CHLORIDE 0.9% INJ SCH (15:21)
[2016-04-13] MEDS: LEVOPHED 8 MG in D5 1/2 NS 250 ML IV SCH (17:03)
[2016-04-13] MEDS ORDERED: CALAMINE LOTION TOP PRN (18:23)
[2016-04-13] MEDS ORDERED: CALMOSEPTINE OINTMENT TOP PRN ×2 (18:45→19:04)
[2016-04-14] MEDS: HUMALOG SUBQ SCH ×6 (01:39→20:28)
[2016-04-14] MEDS: ZOSYN 2.25 GM/NS 50 ML IV SCH ×5 (03:02→20:27)
[2016-04-14] MEDS: DUONEB (A & A) INH SCH ×6 (03:14→23:21)
[2016-04-14 04:11] LABS: MANUAL DIFF NEEDED? NO
[2016-04-14 04:27] LABS: ALLEN TEST YES; BE -2.9 mmoll (-3.0-3.0); BLOOD TYPE ARTERIAL; DRAW SITE R RADIAL; O2(CT) 19.8 mL/dL (15.0-23.0); PCO2(98.6) 38 mmHg (35-45); PO2(98.6) 116 mmHg (60-100); SAMPLE BLOOD; SAO2 98.6 % (95.0-100.0); SRATE 10 BPM; THB 14.6 g/dL (11.5-17.4); TVOL 600 mL; pH(98.6) 7.37 (7.35-7.45)
[2016-04-14 04:29] LABS: MODALITY VENTILATOR
[2016-04-14 04:31] LABS: ALBUMIN 2.2 g/dL (3.5-5.0); CALCIUM 7.6 mg/dL (8.8-10.2); POTASSIUM 4.3 mmol/L (3.5-5.1); TOTAL BILIRUBIN 0.89 mg/dL (0.20-1.00); TOTAL PROTEIN 5.4 g/dL (6.3-8.3)
[2016-04-14 04:34] LABS: BASO% 0.4 % (0.0-0.8); EOS# 0.29 X1000 (0.0-0.7); HEMATOCRIT 31.9 % (37.0-47.0); HEMOGLOBIN 10.1 g/dL (12.0-16.0); IMM GRAN# 0.04 X1000 (0.0-0.04); IMM GRAN% 0.5 % (0.0-0.5); LYMPH# 1.22 X1000 (1.2-3.4); LYMPH% 16.7 % (20.5-51.1); MCH 31.7 PG (27-31); MCHC 31.7 g/dL (33-37); MONO% 9.6 % (1.7-9.3); MPV 12.6 FL (7.4-10.4); NEUT% 68.8 % (42.2-75.2); PLT 87 X1000 (130-400); RBC 3.19 XMIL (4.2-5.4)
--- NOTE | 2016-04-14 05:48 | EKG Report ---
Test Performed on : 04/12/2016 06:14:25 AM Test Reason : s/p full arrest Blood Pressure : / mmHG Vent. Rate : 061 BPM Atrial Rate : 061 BPM P-R Int : 148 ms QRS Dur : 120 ms QT Int : 534 ms P-R-T Axes : 033 -32 246 degrees QTc Int : 537 ms Normal sinus rhythm. Left axis deviation Septal infarct (cited on or before 11-APR-2016) Possible Lateral infarct , age undetermined Nonspecific T wave abnormality Abnormal ECG When compared with ECG of 11-APR-2016 14:27, (Unconfirmed) Borderline criteria for Lateral infarct are now present Nonspecific T wave abnormality now evident in Inferior leads Confirmed by Tanner Castañeda MD ([id number]) on 04/16/2016 8:46:11 PM
--- NOTE | 2016-04-14 07:56 | Diag Imaging Result Document ---
PROCEDURE NAME: CHEST-PORTABLE - 04/14/2016 SINGLE FRONTAL RADIOGRAPH OF THE CHEST: COMPARISON: 04/13/2016. FINDINGS: ET tube is stable. Right vas cath is stable. Bilateral infiltrates, more prominent on the right are essentially stable. No new consolidation is identified. Cardiac silhouette is stable. IMPRESSION: Stable chest.
[2016-04-14] MEDS ORDERED: LEVOPHED 8 MG in D5 1/2 NS 250 ML IV SCH (08:10)
[2016-04-14] MEDS ORDERED: NS 2,000 ML ONE (08:35)
[2016-04-14] MEDS ORDERED: HEPARIN ONE (08:35)
[2016-04-14] MEDS: DIPRIVAN 1% 100 ML IV SCH ×3 (09:02→20:32)
[2016-04-14] MEDS: LOVENOX SUBQ SCH (09:24)
--- NOTE | 2016-04-14 10:09 | PROGRESS NOTE ---
DATE: 04/14/2016 SUBJECTIVE: Ms. Valadez is still intubated. Appears to be comfortable but she is sedated. The swelling has gone down. PHYSICAL EXAMINATION: Vital Signs: Temperature 97.3 degrees, pulse 97, respirations 27, blood pressure 127/77. HEENT: Pupils are equal and reactive. CVP less than 6 cm. Lungs: Clear in all lung reveles anterolateral. Cardiovascular Examination: Regular rhythm and rate without murmur or S3. Abdomen: Soft. Skin: Is warm and dry. Is and Os: Urine output is very poor. Of course, she is end-stage renal disease. DIAGNOSTIC DATA: Chest x-ray from this morning, stable chest. ET tube in place. Right Vas-Cath stable. Bilateral infiltrates more prominent on the right, essentially stable. No new consolidation. Cardiac silhouette stable. Of note, her IV access is tenuous in the left arm so explore whether we need a PICC line. Discussed this with Dr. Spicer as well. ASSESSMENT AND PLAN: 1. End-stage kidney disease. Continue dialysis. Continue to work on pulmonary venous hypertension and decrease extracellular fluid volume. 2. Status post arrest, sounds like predominantly respiratory. Continue to wean as able off the ventilator. 3. Electrolytes followed, adjust also with the help of dialysis. 4. History of severe coronary artery disease. Aware. 5. Nutrition. Nasogastric tube feeding in place. 6. Of note, she had an echocardiogram done on 04/12/2016. Left ventricle mildly dilated. Ejection fraction 35%. Global hypokinesis. In addition, apical akinesis. Aortic valve leaflets were trileaflet. No serious valvular dysfunction. Pulmonary pressure about 42 mmHg. 7. Review of orders. Continue present treatment.
[2016-04-14] MEDS: SODIUM CHLORIDE 0.9% INJ SCH (14:56)
[2016-04-14] MEDS: PROTONIX IV SCH (14:56)
--- NOTE | 2016-04-14 17:21 | PROGRESS NOTE ---
DATE: 04/14/2016 TIME SEEN: 0705. SUBJECTIVE: Ms Valadez is resting quietly in bed. She is ventilator dependent. She remains sedated. OBJECTIVE: Her most recent vital signs, temperature 97.9 degrees, blood pressure 84/61, heart rate 88, respirations are 26, she remains on 35% FiO2. Last recorded saturation is 99%. Most recent intake and output. She has had 545 in. She has had 30 mL out. LAB: Sodium 138, potassium 4.3, chloride 100, CO2 20, BUN 50, creatinine 4.5, glucose 148. Her anion gap is 18, calcium 7.6, magnesium of 2, albumin 2.2. White count 7.3, hemoglobin 10.1, hematocrit 31.9 with a platelet count of 87,000. PHYSICAL EXAMINATION: General: This is a 56-year-old white female. She is currently resting in bed. She is in no acute distress. She remains ventilator dependent. Skin: Warm and dry. HEENT: Normocephalic, atraumatic. Conjunctivae pale. She has MILAN. Mucous membranes are dry. Neck: Supple. No JVD. Cardiovascular: Regular rate and rhythm. She is without murmur or gallop. Lungs: Clear to auscultation anteriorly with diminished bases to the posterior. Remains ventilator dependent. Equal excursion. Abdomen: Large, round, positive bowel sounds. No tenderness noted. Genitourinary: Patient has minimal void with hemodialysis assist. Extremities: Continues with 1+ lower extremity edema. No clubbing or cyanosis with chronic venous stasis is noted. ASSESSMENT AND PLAN: 1. End-stage renal disease. Patient is due for her routine dialysis treatment today. We will place her on SLED. She is to dialyze on a 4 K bath. We will dialyze her for 8 hours. We will attempt to pull 4-6 L as tolerated per her blood pressure. 2. Electrolytes. These are acceptable. 3. Acid-base balance. This is acceptable. 4. Anemia. This remains stable. 5. Respiratory failure. She remains ventilator dependent. 6. Status post cardiac arrest. She continues with supportive care. I would like to thank you for allowing us to follow with this patient. Seen, data reviewed, discussed with Jorge Luis Gutierrez on 04/14/16. I agree with the above assessment and plan of care. rg Dictated by SORAIDA Cummins for Krzysztof Spicer MD [facility]
[2016-04-15] MEDS: HUMALOG SUBQ SCH ×6 (01:38→20:12)
[2016-04-15] MEDS: DIPRIVAN 1% 100 ML IV SCH ×4 (02:55→20:11)
[2016-04-15] MEDS: ZOSYN 2.25 GM/NS 50 ML IV SCH ×3 (02:56→18:07)
[2016-04-15] MEDS: DUONEB (A & A) INH SCH ×6 (03:14→23:48)
[2016-04-15 04:20] LABS: ALLEN TEST YES; BE -1.7 mmoll (-3.0-3.0); BLOOD TYPE ARTERIAL; DRAW SITE R RADIAL; METHB 1.4 % (0.0-1.5); PCO2(98.6) 38 mmHg (35-45); PO2(98.6) 92 mmHg (60-100); SAMPLE BLOOD; SAO2 97.8 % (95.0-100.0); SRATE 8 BPM; THB 11.2 g/dL (11.5-17.4); TVOL 600 mL; pH(98.6) 7.39 (7.35-7.45)
[2016-04-15 04:21] LABS: MODALITY VENTILATOR
[2016-04-15 05:43] LABS: ALBUMIN 2.4 g/dL (3.5-5.0); CALCIUM 8.3 mg/dL (8.8-10.2); POTASSIUM 4.3 mmol/L (3.5-5.1); TOTAL BILIRUBIN 1.08 mg/dL (0.20-1.00)
--- NOTE | 2016-04-15 07:50 | Diag Imaging Result Document ---
PROCEDURE NAME: CHEST-PORTABLE - 04/15/2016 SINGLE FRONTAL RADIOGRAPH OF THE CHEST: COMPARISON: 04/14/2016. FINDINGS: ET tube is stable. There is an NG tube that projects below the diaphragm and out of the field of view. Right vas cath is stable. There are persistent bilateral infiltrates. There may be marginal improvement on the right. No new consolidations are identified. Cardiac silhouette is stable. IMPRESSION: Perhaps marginal improvement of infiltrates in the right.
--- NOTE | 2016-04-15 08:13 | Diag Imaging Result Document ---
PROCEDURE NAME: CHEST/ABD TUBE PLACEMENT - 04/14/2016 SINGLE FRONTAL RADIOGRAPH OF THE LOWER CHEST AND UPPER ABDOMEN: COMPARISON: 04/14/2016. FINDINGS: The NG tube appears to have been repositioned. It is now directed toward the right side of the abdomen and likely in the antrum of the stomach or the pylorus. Otherwise, there is interval stability as compared to the recent prior study. IMPRESSION: Repositioning of the NG tube that projects over the region of the antrum of the stomach in the expected position.
--- NOTE | 2016-04-15 08:16 | Diag Imaging Result Document ---
PROCEDURE NAME: CHEST/ABD TUBE PLACEMENT - 04/14/2016 SINGLE FRONTAL RADIOGRAPH OF THE LOWER CHEST AND UPPER ABDOMEN: COMPARISON: 04/14/2016. FINDINGS: The NG tube has been advanced but the tip still projects upward toward the gastroesophageal junction after it loops in the stomach. Otherwise, there is interval stability. IMPRESSION: Interval advancement of the NG tube that is still looped and directed superiorly toward the gastroesophageal junction.
--- NOTE | 2016-04-15 08:30 | Diag Imaging Result Document ---
PROCEDURE NAME: CHEST/ABD TUBE PLACEMENT - 04/14/2016 SINGLE FRONTAL RADIOGRAPH OF THE LOWER CHEST AND UPPER ABDOMEN: COMPARISON: Chest radiograph dated 04/14/2016. FINDINGS: There is a newly placed NG tube. The tip projects below the diaphragm and curls upward, assumed to be in the fundus of the stomach. Limited views of the lung bases are probably stable given differences in exposure. IMPRESSION: Interval placement of NG tube as described.
[2016-04-15] MEDS: LOVENOX SUBQ SCH (10:28)
[2016-04-15] MEDS: SODIUM BICARBONATE 8.4% IV PUSH SCH ×2 (10:28→17:46)
--- NOTE | 2016-04-15 14:35 | PROGRESS NOTE ---
DATE: 04/15/2016 SUBJECTIVE: Ms. Valadez remains ventilator dependent. She remains on propofol. No indications of distress. OBJECTIVE: Her most recent vital signs: Temperature 98.1 degrees, blood pressure 99/63, heart rate 95, respirations 22. She is on 30% FiO2, her last recorded saturation is 96%. She has had 544 in. She has had 210 out. LABORATORY DATA: This a.m. sodium 136, potassium 4.3, chloride 99, CO2 20, BUN 29, creatinine 3.5, glucose 117. Her anion gap is 17. Calcium is 8.3, albumin is 2.4. Her previous hemoglobin is 10.1 on the . PHYSICAL EXAMINATION: General: This is a 56-year-old white female. She is currently resting in bed. She is in no acute distress. She is ventilator dependent. HEENT: Normocephalic, atraumatic. Conjunctivae pale. She has MILAN. Mucous membranes are dry. Neck : Supple. Trachea midline. No JVD. Cardiovascular: Regular rate and rhythm. She is without murmur or gallop. Lungs: Clear to auscultation anteriorly. Diminished posterior bases. Remains ventilator dependent. Equal excursion. Abdomen: Large round, obese, soft, nontender. Positive bowel sounds. Genitourinary: Minimal void with hemodialysis assist. Integumentary: No rashes or lesions evident. Extremities: Continues with 1+ lower extremity edema. No clubbing or cyanosis. Chronic venous stasis is present. Neurological: As mentioned above. ASSESSMENT AND PLAN: 1. End-stage renal disease. Patient has had her dialysis yesterday. We will hold today. She does not appear to be in any fluid volume overload. 2. Electrolytes and acid-base balance. These are acceptable. 3. Anemia. This is acceptable. 4. Status post respiratory/cardiac arrest. She remains ventilator dependent and she remains on Levophed for blood pressure support. I would to thank you for allowing us to follow with this patient. Seen, data reviewed, discussed with Jorge Luis Gutierrez on 04/15/16. I agree with the above assessment and plan of care. rg Dictated by SORAIDA Cummins for Krzysztof Spicer MD [facility]
[2016-04-15] MEDS: SODIUM CHLORIDE 0.9% INJ SCH (14:38)
[2016-04-15] MEDS: PROTONIX IV SCH (14:38)
--- NOTE | 2016-04-15 14:54 | Extremity Venous Study ---
PROCEDURE NAME: Venous U/S Bilateral Legs - 04/12/2016 REFERRING PHYSICIAN: Juan. INTERPRETING PHYSICIAN: Jay. TECH: [place]. The patient is status post full arrest, elevated D-dimer. FINDINGS: Bilateral lower extremity venous images accomplished. The common femoral, superficial femoral, deep femoral, popliteal, posterior tibial, peroneal, greater saphenous are imaged bilaterally. Doppler is used to evaluate the veins for spontaneity, phasicity, distal augmentation. The patient is on the vent and prevents assessment of the respiratory excursion. All veins identified are compressible. INTERPRETATION: No evidence of deep or superficial venous thrombosis in the lower extremity identified.
--- NOTE | 2016-04-15 16:26 | PROGRESS NOTE ---
DATE: 04/15/2016 SUBJECTIVE: Today, Ms. Valadez continues to be intubated. Per the nursing staff the night, there are not any acute changes. Patient had dialysis and about 6 L was removed. OBJECTIVE: Vital signs: Blood pressure is 95/66, pulse of 104, respiration 24 , temperature is 98.6 degrees. General: Ms. Valadez is a 56-year-old female. She is in bed, under the ventilator, synchronizing well. HEENT: Mucosa is pink and moist. Anicteric and acyanotic. Neck: Supple. Chest: Air entry is bilaterally reduced. There are a few transmitted sounds from the ventilator. No crepitations. Cardiovascular: Regular rate and rhythm. Abdomen: Distended. has a small mid gastric hernia (ventral). Bowel sounds are present. Extremities: No pedal edema. BAKER PAINT: Patient continues to be sedated, but she is able to withdraw very actively from pain. She has very good gag reflex. Pupils are round and reactive bilateral. LABORATORY DATA: There is no CBC for this morning. Chemistry: Sodium is 136, potassium is 4.3, chloride is 99, bicarb is 20. IMAGING: A chest x-ray this morning shows marginal improvement in infiltrates. medications include: Lovenox 30 subcutaneous. Insulin sliding scale. Zosyn 2.25 g q.8. Diprivan. ASSESSMENT: 1. Status post cardiac arrest. Not quite sure which was the initial rhythm. An echocardiogram that was done on presentation showed an ejection fraction of 35% with global hypokinesis. There is also some apical akinesis. Patient troponins were remarkably elevated, so I suspect that probably there is some underlying coronary artery disease. I see patient was initially seen by Dr. Martinez. I am hoping that Cardiology is following her. 2. End stage renal disease. Patient continues to be on dialysis. 3. Acute respiratory distress with initial computed tomography angiography consistent with massive bilateral extensive patchy infiltrates likely due to aspiration. Patient continues to be on the ventilator and Pulmonary is on board. 4. Nutritional needs. Patient will continue on the nasogastric tube. [facility]
[2016-04-16] MEDS: SODIUM BICARBONATE 8.4% IV PUSH SCH (01:33)
[2016-04-16] MEDS: HUMALOG SUBQ SCH ×6 (01:33→20:54)
[2016-04-16] MEDS: ZOSYN 2.25 GM/NS 50 ML IV SCH ×3 (03:01→18:05)
[2016-04-16] MEDS: DIPRIVAN 1% 100 ML IV SCH ×3 (03:24→20:55)
[2016-04-16] MEDS: DUONEB (A & A) INH SCH ×6 (03:36→23:05)
[2016-04-16 04:28] LABS: ALLEN TEST YES; BE 0.8 mmoll (-3.0-3.0); BLOOD TYPE ARTERIAL; DRAW SITE R RADIAL; O2(CT) 15.5 mL/dL (15.0-23.0); PCO2(98.6) 39 mmHg (35-45); PO2(98.6) 105 mmHg (60-100); SAMPLE BLOOD; SAO2 98.4 % (95.0-100.0); SRATE 8 BPM; THB 11.4 g/dL (11.5-17.4); TVOL 600 mL; pH(98.6) 7.42 (7.35-7.45)
[2016-04-16 04:33] LABS: MODALITY VENTILATOR
[2016-04-16 07:02] LABS: ALBUMIN 2.3 g/dL (3.5-5.0); CALCIUM 8.3 mg/dL (8.8-10.2); POTASSIUM 4.1 mmol/L (3.5-5.1); TOTAL BILIRUBIN 0.96 mg/dL (0.20-1.00); TOTAL PROTEIN 5.9 g/dL (6.3-8.3)
--- NOTE | 2016-04-16 07:30 | Diag Imaging Result Document ---
PROCEDURE NAME: CHEST-PORTABLE - 04/16/2016 SINGLE FRONTAL RADIOGRAPH OF THE CHEST: COMPARISON: 04/15/2016. FINDINGS: The ET tube and right vas catheter stable. An NG tube projects below the diaphragm and out of the field of view. Infiltrate on the right is approximately stable. The left lung infiltrate has largely resolved. No new consolidations identified. Cardiac silhouette is stable. IMPRESSION: Largely resolved left lung infiltrate but stable infiltrate on the right.
[2016-04-16] MEDS ORDERED: LEVOPHED 8 MG in D5 1/2 NS 250 ML IV SCH (08:15)
[2016-04-16] MEDS ORDERED: HEPARIN ONE (08:52)
[2016-04-16] MEDS ORDERED: NS 2,000 ML ONE (08:52)
[2016-04-16] MEDS: LOVENOX SUBQ SCH (10:19)
[2016-04-16] MEDS ORDERED: ASPIRIN GT ONE (10:23)
[2016-04-16 12:49] LABS: ALLEN TEST YES; BE -1.1 mmoll (-3.0-3.0); BLOOD TYPE ARTERIAL; DRAW SITE L RADIAL; METHB 1.1 % (0.0-1.5); O2(CT) 17.2 mL/dL (15.0-23.0); PCO2(98.6) 38 mmHg (35-45); PO2(98.6) 77 mmHg (60-100); SAMPLE BLOOD; SAO2 96.6 % (95.0-100.0); THB 13.1 g/dL (11.5-17.4)
[2016-04-16 12:51] LABS: MODALITY VENTILATOR
--- NOTE | 2016-04-16 14:12 | PROGRESS NOTE ---
DATE: 04/16/2016 This morning Ms. Valadez seems to be relatively stable. Continues to be intubated but she is on breathing trial for extubation. OBJECTIVE: Vital Signs: Stable. Blood pressure 127/76 with a pulse of 84, respiration is 25, temperature 97.9 degrees. General: Ms. Valadez is a 56-year-old female. She is in bed, intubated, no distress. Mucosa is pink and moist. Anicteric. Acyanotic. Patient is also getting SLED. Chest: Air entry is bilaterally reduced. There are a few crepitations. Cardiovascular: Regular rate and rhythm. Abdomen: Distended and small ventral hernia. Bowel sounds are present. COMPRESSOR ASSEMBLER: Patient is alert, follows commands. IMAGING STUDIES: This morning a chest x-ray shows largely resolved left lung infiltrates but stable infiltrates on the right. LABORATORY DATA: WBC is 7.30, hemoglobin is 10.1, platelet count of 87,000. Chemistry: Sodium is 137, potassium is 4.1, chloride 97, bicarb is 22, creatinine is 4.5. ASSESSMENT: 1. Status post cardiac arrest. 2. End stage renal disease. Patient is getting SLED. 3. Acute hypoxemic respiratory failure with diffuse interstitial infiltrates likely due to aspiration, seems to be improving. 4. Aspiration pneumonia. Patient is on antibiotics. PLAN: Patient seems to be doing fine. She will continue with SLED. She is also getting a breathing trial. Hopefully we will be able to extubate her today.
--- NOTE | 2016-04-16 14:28 | PROGRESS NOTE ---
DATE: 04/16/2016 SUBJECTIVE: Ms. Valadez is resting quietly in bed. She remains ventilator dependent. OBJECTIVE: Her most recent vital signs: Temperature 97.9 degrees, blood pressure 127/76, heart rate 84, respirations 25. She is on 30% FiO2, last recorded saturation is 100% . She has had 875 in. She has had 150 out. Her most recent labs: Sodium 137, potassium 4.1, chloride 97, CO2 22, BUN 45 creatinine 4.5, glucose 156. Her anion gap is 18, calcium 8.3, albumin 2.3. Last hemoglobin on the is 10.1. PHYSICAL EXAM: This is Yvrose Valadez, a 56-year-old white female. She is currently resting in bed. She is in no acute distress. She remains sedated on ventilator dependence.Skin: Warm and dry. HEENT: Normocephalic, atraumatic. Conjunctiva is pale. She has MILAN. Mucous membranes are dry. Neck: Supple. Trachea midline. No JVD. Cardiovascular: Regular rate and rhythm. She is without murmur or gallop. Lungs: Clear to auscultation anteriorly. Equal excursion. Diminished posterior bases. Remains ventilator dependent. Abdomen: Round, soft, nontender. Positive bowel sounds. She remains with tube feedings per NG tube. Genitourinary: Not inspected. Minimal void with dialysis assist. Integumentary: No rashes or lesions evident. Extremities: Continues with 1+ lower extremity edema. No clubbing or cyanosis. Neurological: As mentioned above. ASSESSMENT AND PLAN: 1. End-stage renal disease. Patient is due for her dialysis again today, we will place her on SLED. She is to be on a [address] will place her on a 27 bicarbonate. We will dialyze her for 8 hours. We will attempt to pull 4-6 L of ultrafiltration. 2. Electrolytes with acid-base balance. These are acceptable. 3. Anemia. This is acceptable. 4. Respiratory cardiac arrest. The patient remains ventilator dependent with no support on at this time. This a.m. blood pressure remains stable. I would like to thank you for allowing us to follow with this patient. Seen, data reviewed, discussed with Jorge Luis Gutierrez on 04/16/16. I agree with the above assessment and plan of care. Terminated SLED early b/c of hypotension. Responded to fluids. rg Dictated by SORAIDA Cummins for Krzysztof Spicer MD [facility]
[2016-04-16] MEDS: PROTONIX IV SCH (14:55)
[2016-04-16] MEDS: SODIUM CHLORIDE 0.9% INJ SCH (14:55)
[2016-04-17] MEDS: HUMALOG SUBQ SCH ×6 (00:55→20:25)
[2016-04-17] MEDS: DUONEB (A & A) INH SCH ×6 (03:25→22:40)
[2016-04-17] MEDS: ZOSYN 2.25 GM/NS 50 ML IV SCH ×3 (03:42→17:59)
[2016-04-17] MEDS: DIPRIVAN 1% 100 ML IV SCH (03:55)
[2016-04-17] MEDS: TYLENOL PO PRN (04:22)
[2016-04-17 04:34] LABS: ALLEN TEST YES; BE -1.2 mmoll (-3.0-3.0); BLOOD TYPE ARTERIAL; DRAW SITE R RADIAL; METHB 1.3 % (0.0-1.5); MODALITY VENTILATOR; PCO2(98.6) 39 mmHg (35-45); PO2(98.6) 85 mmHg (60-100); SAMPLE BLOOD; SRATE 8 BPM; TVOL 600 mL; pH(98.6) 7.39 (7.35-7.45)
[2016-04-17 05:18] LABS: ALBUMIN 2.6 g/dL (3.5-5.0); CALCIUM 8.3 mg/dL (8.8-10.2); POTASSIUM 4.1 mmol/L (3.5-5.1); TOTAL BILIRUBIN 0.86 mg/dL (0.20-1.00); TOTAL PROTEIN 6.2 g/dL (6.3-8.3)
--- NOTE | 2016-04-17 07:34 | Diag Imaging Result Document ---
PROCEDURE NAME: CHEST-PORTABLE - 04/17/2016 ERECT AP PORTABLE CHEST AT 0540 HOURS: FINDINGS: There is an endotracheal tube with its tip slightly below the thoracic inlet and an NG tube with its tip below the diaphragm. There is a double-lumen right internal jugular central venous catheter with its tip in the right atrium. There is a pacemaker on the left. The inspiration is slightly suboptimal, and the heart size is enlarged. Compared to the previous examination of 04/16/2016, there has been no appreciable change. Some improvement in the pulmonary edema present on 04/14/2016 has occurred. IMPRESSION: Essentially resolved pulmonary edema. Cardiomegaly.
[2016-04-17] MEDS: LOVENOX SUBQ SCH (09:34)
[2016-04-17 10:36] LABS: BASO% 0.9 % (0.0-0.8); EOS# 0.75 X1000 (0.0-0.7); EOS% 5.9 % (0.0-10.0); HEMATOCRIT 40.2 % (37.0-47.0); HEMOGLOBIN 12.9 g/dL (12.0-16.0); IMM GRAN# 0.37 X1000 (0.0-0.04); IMM GRAN% 2.9 % (0.0-0.5); LYMPH# 2.73 X1000 (1.2-3.4); LYMPH% 21.4 % (20.5-51.1); MCH 32.3 PG (27-31); MCHC 32.1 g/dL (33-37); MCV 100.5 FL (81-99); MONO# 1.35 X1000 (0.11-0.59); MONO% 10.6 % (1.7-9.3); MPV 11.9 FL (7.4-10.4); NEUT% 58.3 % (42.2-75.2); PLT 156 X1000 (130-400)
--- NOTE | 2016-04-17 11:09 | PROGRESS NOTE ---
DATE: 04/17/2016 SUBJECTIVE: She remains sedated on the ventilator. She will arouse and move extremities. She was able to nod to me with verbal command. OBJECTIVE: Vital Signs: Blood pressure 97/71, heart rate 110, respirations 14, T-max 100.5 degrees. Intake 900 mL. Output 3.2 L. PHYSICAL EXAM: No acute distress.Skin: Warm and dry with ecchymoses. HEENT: Conjunctivae are pink. Neck: Neck veins are not distended. Heart: Irregular and tachycardic. PMI is displaced. Lungs: Have equal breath sounds. No crackles. Abdomen: Soft, nontender. Bowel sounds are present. Extremities: Have trace edema. No clubbing or cyanosis. LABORATORY DATA: Sodium 137, potassium 4.1, chloride 100, bicarbonate 22, BUN 37, creatinine 4.2, hemoglobin 10.1. IMPRESSION: 1. End-stage kidney disease: No dialysis today. Well managed. 2. Electrolytes/acid base/anemia. All in target. 3. Respiratory failure. Progressively improving. 4. Status post cardiac arrest. Mental status seems to be improving. 5. Fever. She is on broad-spectrum antibiotics with Zosyn. If the team desires we can certainly dose vancomycin with dialysis.
[2016-04-17 11:45] LABS: BANDS 2 % (0-1); EOS 8 % (1-10); LYMPHS 32 % (21-51); MONO 2 % (1-9)
[2016-04-17 11:46] LABS: MANUAL DIFF NEEDED? YES
[2016-04-17] MEDS: CARDIZEM 100 MG/NS 100 ML IV SCH (13:14)
--- NOTE | 2016-04-17 13:48 | PALLIATIVE CARE CONSULTATION ---
DATE: 04/16/2016 REQUESTING PHYSICIANS: Dr. Corea. REASON FOR CONSULTATION: Goals of care. HISTORY OF PRESENT ILLNESS: This is a 56-year-old female with a past medical history of extensive coronary artery disease, ischemic cardiomyopathy, history of DVT, diabetes mellitus, morbid obesity, end-stage renal disease, on hemodialysis, hypothyroidism, hypertension and AICD placement. She was most recently admitted on 04/11/2016 after presenting to [facility] Emergency Department with complaints of shortness of breath following a 3 to 4 day history of cough and congestion. While in the ED it was reported as she returned from the bathroom she sustained cardiopulmonary arrest. The patient received multiple doses of epinephrine along with CPR. She was intubated and her blood pressure and heart rhythm were stabilized and she was transferred to [facility] for further evaluation and treatment. Today she remains in the ICU. She is mechanically ventilated. Her family is at the bedside. The Palliative Care team has been consulted to assist with goals of care. REVIEW OF SYSTEMS: Unable to review. PAST MEDICAL HISTORY: See HPI. PAST SURGICAL HISTORY: 1. AICD placement. 2. Cholecystectomy. 3. Debridement. 4. . 5. Tonsillectomy. SOCIAL HISTORY: Prior to this admission she lived at home with her . Alcohol, tobacco and drug use have been denied. FAMILY HISTORY: None pertinent. PHYSICAL EXAM: General: This is a 56-year-old obese female, who is requiring mechanical ventilation. She does not appear to be in any acute distress. HEENT: Atraumatic, normocephalic. Neck: Trachea is midline. Cardiovascular: Regular rate and rhythm. Pulmonary: Lung sounds are diminished. Respirations are nonlabored. Abdomen: Soft. Extremities: Pulses are palpable. IMPRESSION: This is a 56-year-old female with a past medical history as listed above in the HPI. The Palliative Care team met with Ms. Valadez's , children and mail messenger to discuss her goals of care. Ms. Valadez is a full code. She does not have advanced directive or power of disability attorney. The family has asked for further information on both of those documents. The family had questions regarding disease process, and those were discussed. The Palliative Care team will continue to follow daily until discharge. Thank you for this consultation. Dictated by SORAIDA Shrestha for [place] MD
--- NOTE | 2016-04-17 15:37 | PROGRESS NOTE ---
DATE: 04/17/2016 SUBJECTIVE: Today, Ms. Valadez is doing a whole lot better. She is just immediate post extubation and she is doing okay. OBJECTIVE: Vital Signs: Stable. Blood pressure is 118/72, pulse of 121, respiration is 27. General: Ms. Valadez is a 56-year-old, female. She is in bed, in no distress. HEENT: Mucosa is pink and moist. Anicteric. Acyanotic. Neck: Supple. Chest: Good air entry bilaterally. Few bibasilar crepitations. Cardiovascular: Regular rate and rhythm. Abdomen: Soft, distended, but nontender. Extremities: No pedal edema. 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 LABORATORY DATA: WBC is 12.77, hemoglobin is 12.9, platelet count of 156. Chemistry reviewed. Creatinine is 4.2, consistent with end-stage renal disease. ASSESSMENT: 1. Status post cardiac arrest. 2. Acute hypoxemic respiratory failure. Patient is status post immediate extubation, seems to be doing fine. 3. Aspiration pneumonia. 4. End stage renal disease. 5. Atrial fibrillation, rapid ventricular rate. Patient was started on IV diltiazem drip. PLAN: The patient seems to be doing fine. She is just immediate post extubation. We are going to observe her here in the unit for another 24 hours. Hopefully, be able to transfer her to the floor tomorrow morning.
[2016-04-17] MEDS: SODIUM CHLORIDE 0.9% INJ SCH (15:39)
[2016-04-17] MEDS: PROTONIX IV SCH (15:39)
[2016-04-18] MEDS: HUMALOG SUBQ SCH ×6 (01:30→21:30)
[2016-04-18] MEDS: CARDIZEM 100 MG/NS 100 ML IV SCH (02:40)
[2016-04-18] MEDS: ZOSYN 2.25 GM/NS 50 ML IV SCH ×3 (02:44→18:06)
[2016-04-18 04:40] LABS: ALLEN TEST YES; BE -5.6 mmoll (-3.0-3.0); BLOOD TYPE ARTERIAL; DRAW SITE R RADIAL; METHB 1.2 % (0.0-1.5); O2(CT) 13.4 mL/dL (15.0-23.0); PCO2(98.6) 39 mmHg (35-45); PO2(98.6) 86 mmHg (60-100); SAMPLE BLOOD; SAO2 97.1 % (95.0-100.0); pH(98.6) 7.32 (7.35-7.45)
[2016-04-18 04:41] LABS: MODALITY BI PAP
[2016-04-18 05:33] LABS: ALBUMIN 2.7 g/dL (3.5-5.0); CALCIUM 8.8 mg/dL (8.8-10.2); POTASSIUM 4.6 mmol/L (3.5-5.1); TOTAL BILIRUBIN 1.05 mg/dL (0.20-1.00); TOTAL PROTEIN 6.3 g/dL (6.3-8.3)
--- NOTE | 2016-04-18 05:55 | EKG Report ---
Test Performed on : 04/17/2016 7:43:33 PM Test Reason : CHEST PAIN Blood Pressure : / mmHG Vent. Rate : 093 BPM Atrial Rate : 101 BPM P-R Int : 000 ms QRS Dur : 118 ms QT Int : 384 ms P-R-T Axes : 000 -24 165 degrees QTc Int : 477 ms Atrial fibrillation. Septal infarct (cited on or before 11-APR-2016) ST & T wave abnormality, consider lateral ischemia Abnormal ECG When compared with ECG of 12-APR-2016 06:14, Atrial fibrillation. has replaced Sinus rhythm. Vent. rate has increased BY 32 BPM Borderline criteria for Lateral infarct are no longer present Serial changes of Septal infarct present Confirmed by Tanner Castañeda MD ([id number]) on 04/18/2016 9:00:23 PM
[2016-04-18] MEDS: DUONEB (A & A) INH SCH ×6 (07:22→23:30)
--- NOTE | 2016-04-18 07:31 | Diag Imaging Result Document ---
PROCEDURE NAME: CHEST-PORTABLE - 04/18/2016 SINGLE FRONTAL RADIOGRAPH OF THE CHEST: COMPARISON: 04/17/2016. FINDINGS: There has been interval removal of the NG tube and ET tube. The right Vas-Cath is in stable position. No new consolidations are appreciated. Cardiac silhouette is stable as well. IMPRESSION: Interval removal of the NG tube and ET tube. Stable chest, otherwise.
[2016-04-18] MEDS ORDERED: NS 2,000 ML ONE (08:48)
[2016-04-18] MEDS ORDERED: HEPARIN ONE (08:48)
--- NOTE | 2016-04-18 08:53 | Extremity Venous Study ---
PROCEDURE NAME: Venous U/S Left Leg - 04/17/2016 PROCEDURE: Left lower extremity venous duplex and color flow imaging study using the [email or web address] E 9 ultrasound system with a 9 L-D transducer. DATE: 04/17/2016. REFERRING PHYSICIAN: Dr. Garay from ICU #4. PATIENT PROFILE: A 56-year-old female. RENTAL CAR PORTER: Lilia Lou RVT. INDICATIONS: 1. Swelling of the limb ICD 10 M 79.89. 2. Erythema, redness, ICD 10 L 53.9. FINDINGS: The left common femoral vein and its branches, the deep and superficial femoral veins were satisfactorily imaged and they had flow through them. The left popliteal vein and the veins below the knee had flow through them and were compressible. There was limited veins below the knee on the left because of the patient's swollen leg. There was some evidence of fluid in the posterior popliteal space behind the left knee. The superficial veins of the left lower extremity were compressible throughout their length. INTERPRETATION: 1. There was limited views of the deep veins below the knee on the left, but no thrombus was visualized in these veins. 2. No evidence of acute deep venous thrombosis, left lower extremity. 3. No evidence of superficial venous thrombosis, left lower extremity. 4. Fluid in the car seat upholsterer popliteal space.
--- NOTE | 2016-04-18 11:48 | PROGRESS NOTE ---
DATE: 04/18/2016 SUBJECTIVE: She has been extubated since I saw her yesterday. She has BiPAP on currently and is asking to have it discontinued. No other new symptoms. She wants to eat ice. OBJECTIVE: Vital Signs: Blood pressure 128/85, heart rate 84, respirations 20, afebrile. Intake 358 mL, output 0. General: Awake, alert, appropriate in no distress. Skin: Warm and dry. Conjunctivae are pink. Heart: Regular with systolic murmur. PMI is displaced and enlarged. Lungs: Have equal breath sounds. No crackles or wheezes. Abdomen: Soft and nontender. Bowel sounds are present. Extremities: Have 1+ edema. No clubbing or cyanosis. LABORATORY DATA: Sodium 137, potassium 4.6, chloride 97, bicarbonate 19, BUN 49, creatinine 5.1, hemoglobin 12.9. IMPRESSION: 1. End-stage kidney disease: She will have her routine hemodialysis treatment today with a goal of 2 L ultrafiltration. 2. Electrolytes are in target. 3. Acid-base is acceptable. 4. Anemia is improved. 5. Respiratory failure, improved.
[2016-04-18] MEDS ORDERED: NS 2,000 ML MISC PRN (11:58)
[2016-04-18] MEDS ORDERED: TIGHT: 0.2 ML/HR MISC PRN (11:58)
[2016-04-18] MEDS ORDERED: HEPARIN IV PRN (11:58)
[2016-04-18] MEDS: LOVENOX SUBQ SCH (13:45)
[2016-04-18] MEDS: CARDIZEM PO SCH ×2 (15:18→21:29)
[2016-04-18] MEDS: SODIUM CHLORIDE 0.9% INJ SCH (15:19)
[2016-04-18] MEDS: PROTONIX IV SCH (15:19)
--- NOTE | 2016-04-18 17:18 | PROGRESS NOTE ---
DATE: 04/18/2016 Today Ms. Valadez refers to be doing a whole lot better. She was actually getting dialysis at the time of the encounter. Per the nursing staff, the night was uneventful. OBJECTIVE: Vital Signs: Stable. Blood pressure is 102/69, pulse of 102, respirations 25, temperature is 99.4 degrees. Physical Exam: Pretty much unchanged from yesterday. Of note, patient's mentation is a whole lot better and is breathing a whole lot better. LABORATORY DATA: Has been reviewed. Her sodium is 137, potassium 4.6, chloride is 97, bicarb is 19. BUN is 49. Creatinine is 5.1. ASSESSMENT: 1. Status post cardiac arrest. The patient is doing fine. 2. Acute hypoxemic respiratory failure. The patient is day 1 post extubation. 3. Aspiration pneumonia. We will continue on antibiotics. 4. Endstage renal disease on hemodialysis. Atrial fibrillation with rapid ventricular response. Patient was started on IV diltiazem and is being followed up by Cardiology. GENERAL PLAN: Patient seems to be stable. We are going start her on clear liquids. Get her an official speech evaluation and advance her diet accordingly. The patient has been started on oral diltiazem. Hopefully that will be able to control her rate. We still pending official report from her to see if they still want her to be transferred to [place] and if at all they have been able to get in touch with Dr. Cruz for the transfer.
[2016-04-19] MEDS: NORCO-5 PO PRN ×2 (00:05→09:30)
[2016-04-19] MEDS: HUMALOG SUBQ SCH ×6 (00:09→20:33)
[2016-04-19] MEDS: DUONEB (A & A) INH SCH ×6 (03:23→23:33)
[2016-04-19] MEDS: ZOSYN 2.25 GM/NS 50 ML IV SCH ×3 (03:42→18:19)
[2016-04-19 04:36] LABS: MANUAL DIFF NEEDED? NO
[2016-04-19 04:37] LABS: ALLEN TEST YES; BE -5.9 mmoll (-3.0-3.0); BLOOD TYPE ARTERIAL; DRAW SITE R RADIAL; O2(CT) 21.1 mL/dL (15.0-23.0); PCO2(98.6) 41 mmHg (35-45); PO2(98.6) 81 mmHg (60-100); SAMPLE BLOOD; SAO2 96.4 % (95.0-100.0)
[2016-04-19 04:38] LABS: MODALITY CANNULA
[2016-04-19 04:54] LABS: BASO% 0.6 % (0.0-0.8); EOS# 0.57 X1000 (0.0-0.7); HEMATOCRIT 38.3 % (37.0-47.0); HEMOGLOBIN 12.2 g/dL (12.0-16.0); IMM GRAN# 0.15 X1000 (0.0-0.04); IMM GRAN% 1.3 % (0.0-0.5); LYMPH# 1.97 X1000 (1.2-3.4); LYMPH% 17.3 % (20.5-51.1); MCH 31.9 PG (27-31); MCHC 31.9 g/dL (33-37); MCV 100.3 FL (81-99); MONO# 1.29 X1000 (0.11-0.59); MONO% 11.3 % (1.7-9.3); MPV 11.8 FL (7.4-10.4); NEUT% 64.5 % (42.2-75.2); PLT 156 X1000 (130-400); RBC 3.82 XMIL (4.2-5.4)
[2016-04-19 05:02] LABS: ALBUMIN 2.7 g/dL (3.5-5.0); CALCIUM 8.5 mg/dL (8.8-10.2); POTASSIUM 4.3 mmol/L (3.5-5.1); TOTAL BILIRUBIN 1.08 mg/dL (0.20-1.00); TOTAL PROTEIN 6.3 g/dL (6.3-8.3)
[2016-04-19] MEDS: CARDIZEM PO SCH ×3 (05:06→20:33)
--- NOTE | 2016-04-19 08:58 | Diag Imaging Result Document ---
PROCEDURE NAME: CHEST-PORTABLE - 04/19/2016 AP PORTABLE CHEST AT 0500 HOURS: FINDINGS: There is a right internal jugular central venous catheter with its tip in the right atrium. There is a pacemaker on the left. There is some cardiomegaly. The lungs are basically clear and unchanged since 04/18/2016. IMPRESSION: Cardiomegaly.
[2016-04-19] MEDS: LOVENOX SUBQ SCH (10:02)
--- NOTE | 2016-04-19 11:30 | PROGRESS NOTE ---
DATE: 04/19/2016 SUBJECTIVE: Ms. Valadez reports she feels okay. They are advanced her diet. She seems like she is tolerating it well. OBJECTIVE: Vital Signs: This morning, she is afebrile. Heart rates in the 80s to 90s. Her blood pressure most recently is 119/74. General: She is in no acute distress. Cardiovascular: She sounds to be in a regular rate and rhythm presently. She has no obvious murmurs. She has no lower extremity edema. Her chest exam sounds clear bilaterally. She has no increased work of breathing. Abdomen: Soft, nontender. PERTINENT DATA: Sodium this morning is 136, potassium 4.3. Her BUN is 38, creatinine 4.5. Her white count is 11.3, hematocrit 38, platelet count is 156,000. ASSESSMENT: 1. Status post cardiac arrest. 2. Atrial fibrillation. PLAN: She will likely need an ischemic evaluation next week. We would like her to progress to being out of the ICU before that happens. We will continue to follow for now.
[2016-04-19] MEDS: CULTURELLE PO SCH ×2 (13:19→20:32)
[2016-04-19] MEDS: SODIUM CHLORIDE 0.9% INJ SCH (14:46)
[2016-04-19] MEDS: PROTONIX IV SCH (14:47)
--- NOTE | 2016-04-19 16:45 | PROGRESS NOTE ---
DATE: 04/19/2016 SUBJECTIVE: Today Ms. Valadez refers to be doing a whole lot better. She was sitting up in the chair by the side of the bed when I saw her. OBJECTIVE: Vital signs: Stable. Blood pressure is 94/56, pulse is 93, respirations 25, temperature is 97.1 degrees. General Exam: Ms. Valadez 56-year-old female. She was sitting up in the bed. No seemingly distress. HEENT: Mucosa is pink and moist. Anicteric. Acyanotic. Neck: Supple. Chest: Air entry is bilaterally reduced. There continued to be diffuse bilateral congestion with some rhonchi and coarse crepitations in both lung reveles. Cardiovascular: Irregularly irregular but rate controlled. No murmurs. Abdomen: Soft, distended, nontender. Extremities: No pedal edema. ASSISTANT OPERATIONS MANAGER: Patient is alert. She is more oriented and does not have any focal neurological deficit. LABORATORY DATA: WBC is 11.37, hemoglobin is 12.2, platelet count of 156,000. Chemistry is reviewed, slightly acidotic consistent with CKD. Glucose is controlled. A Chest x-ray this morning shows stable cardiomegaly. Lungs are basically clear and unchanged. ASSESSMENT: 1. Status post cardiac arrest. 2. Hypoxemic respiratory failure. Patient is day 2 postextubation. 3. Aspiration pneumonia. 4. End-stage renal disease on hemodialysis. 5. Atrial fibrillation, rapid ventricular response. Patient is currently on oral medications seems to be doing a lot better. Rate is controlled. 6. Congestive heart failure with ejection fraction of 35%, echocardiogram showing global hypokinesis. Patient is known to have ischemic cardiomyopathy. PLAN: 1. Today patient is doing a whole lot better. We are going to move her from the ICU to regular floor. We will continue with her current medications as well as the antibiotics for the aspiration pneumonia. 2. The wants to transfer the patient to [place] where her hand tufter is. We still pending final arrangement from him to see if he still wants that to be done and if he has got in touch with the patient's hand tufter, Dr. Cruz.
[2016-04-19] MEDS: TYLENOL PO PRN (17:21)
[2016-04-20] MEDS: NORCO-5 PO PRN ×3 (00:04→23:57)
[2016-04-20] MEDS: HUMALOG SUBQ SCH ×6 (00:08→20:24)
[2016-04-20] MEDS: DUONEB (A & A) INH SCH ×6 (03:36→22:58)
[2016-04-20] MEDS: ZOSYN 2.25 GM/NS 50 ML IV SCH ×2 (04:38→10:00)
[2016-04-20] MEDS: CARDIZEM PO SCH ×3 (04:38→20:24)
[2016-04-20 04:56] LABS: ALLEN TEST YES; BE -4.4 mmoll (-3.0-3.0); BLOOD TYPE ARTERIAL; DRAW SITE R RADIAL; METHB 1.4 % (0.0-1.5); O2(CT) 17.9 mL/dL (15.0-23.0); PCO2(98.6) 39 mmHg (35-45); PO2(98.6) 100 mmHg (60-100); SAMPLE BLOOD; SAO2 98.1 % (95.0-100.0); THB 13.3 g/dL (11.5-17.4); pH(98.6) 7.34 (7.35-7.45)
[2016-04-20 05:01] LABS: MODALITY CANNULA
--- NOTE | 2016-04-20 07:34 | Diag Imaging Result Document ---
PROCEDURE NAME: CHEST-PORTABLE - 04/20/2016 AP PORTABLE CHEST, 04/20/2016 AT 0500 HOURS: FINDINGS: There is a right internal jugular double lumen catheter with its tip in the right atrium. There is a pacemaker on the left. The inspiration is suboptimal. The appearance of the chest has not changed significantly since 04/19/2016. IMPRESSION: Stable chest.
[2016-04-20 07:48] LABS: ALBUMIN 2.7 g/dL (3.5-5.0); CALCIUM 8.7 mg/dL (8.8-10.2); POTASSIUM 4.2 mmol/L (3.5-5.1); TOTAL BILIRUBIN 1.08 mg/dL (0.20-1.00); TOTAL PROTEIN 6.3 g/dL (6.3-8.3)
[2016-04-20] MEDS: CULTURELLE PO SCH ×2 (08:27→20:24)
[2016-04-20] MEDS: LOVENOX SUBQ SCH (09:55)
[2016-04-20] MEDS: TYLENOL PO PRN (13:19)
[2016-04-20] MEDS: SODIUM CHLORIDE 0.9% INJ SCH (14:32)
[2016-04-20] MEDS: PROTONIX IV SCH (14:32)
--- NOTE | 2016-04-20 16:41 | PROGRESS NOTE ---
DATE: 04/20/2016 SUBJECTIVE: Today Ms. Valadez refers to be doing a whole lot better. She denies any shortness of breath, but she says she has a generalized chest pain which we think is due to the chest compression she received when she arrested. OBJECTIVE: Vital signs: Blood pressure is 101/61, pulse of 92, respirations 18, temperature is 96.8 degrees. General: Ms. Valadez is a 56-year-old female. She was sitting up in the chair. Not in any distress. HEENT: Mucosa is pink and moist. Anicteric and acyanotic. Neck: Supple. Chest: Air entry is bilaterally reduced. There are bilateral coarse crepitations in both posterior lung reveles. Cardiovascular: Irregularly irregular, but rate controlled. No murmurs, no rubs. No gallops. Abdomen: Soft, distended, but nontender. Extremities: No pedal edema. SHEET ROCK APPLIER: Patient is alert and oriented x4. There is no focal neurological deficit. LABORATORY DATA: PH 7.34, pCO2 of 39, PO2 of 100, sodium is 131, potassium is 4.2, chloride 91, bicarb is 19, creatinine is 5.4. Patient is endstage renal disease patient on dialysis. ASSESSMENT: 1. Status post cardiac arrest. 2. Hypoxemic respiratory failure status post extubation. Today is day 3. 3. Aspiration pneumonia. Patient is currently on Zosyn. Today a day 5 on the Zosyn. We plan to treat this for a total of 7-10 days. We are going to switch this to p.o. antibiotics to complete the course of therapy. 4. Congestive heart failure with ejection fraction of 35% on echo. 5. Ischemic cardiomyopathy. Patient is status post pacemaker. 6. Atrial fibrillation, currently rate controlled on medications. GENERAL PLAN: Patient has already been transferred to the floor. We are pending a floor bed. We will put in a Physical Therapy consult to help the patient ambulate and will be pending further recommendations from Cardiology to decide when patient will be ideal to be discharged. Cardiology is involved, we will therefore defer the decision of anticoagulation for her atrial fibrillation to them, especially since there is a thought process of having her go under ischemic workup the coming week.
[2016-04-20] MEDS: AUGMENTIN PO SCH (20:24)
[2016-04-21] MEDS: HUMALOG SUBQ SCH ×6 (00:58→22:25)
[2016-04-21] MEDS: DUONEB (A & A) INH SCH ×6 (03:03→22:59)
[2016-04-21] MEDS: CARDIZEM PO SCH ×3 (06:02→22:22)
[2016-04-21] MEDS: NORCO-5 PO PRN ×3 (06:02→22:23)
[2016-04-21 07:18] LABS: ALBUMIN 2.9 g/dL (3.5-5.0); CALCIUM 8.7 mg/dL (8.8-10.2); POTASSIUM 4.5 mmol/L (3.5-5.1); TOTAL BILIRUBIN 0.96 mg/dL (0.20-1.00); TOTAL PROTEIN 6.7 g/dL (6.3-8.3)
--- NOTE | 2016-04-21 08:04 | Diag Imaging Result Document ---
PROCEDURE NAME: CHEST-PORTABLE - 04/21/2016 PORTABLE CHEST X-RAY, 04/21/2016: COMPARISON: 04/20/2016. FINDINGS: Stable right dialysis catheter with the tip in the right atrium. Stable pacemaker. Stable cardiomegaly and pulmonary vascular congestion. No new infiltrates. IMPRESSION: No change from prior.
[2016-04-21] MEDS ORDERED: TIGHT: 0.2 ML/HR MISC PRN (08:08)
[2016-04-21] MEDS ORDERED: NS 2,000 ML MISC PRN (08:08)
[2016-04-21] MEDS ORDERED: HEPARIN IV PRN (08:08)
[2016-04-21] MEDS ORDERED: NS 2,000 ML ONE (08:17)
[2016-04-21] MEDS ORDERED: HEPARIN ONE (08:17)
[2016-04-21] MEDS: CULTURELLE PO SCH ×2 (08:21→22:22)
[2016-04-21] MEDS: AUGMENTIN PO SCH ×2 (09:06→22:23)
[2016-04-21] MEDS: LOVENOX SUBQ SCH (10:15)
--- NOTE | 2016-04-21 11:22 | PROGRESS NOTE ---
DATE: 04/21/2016 SUBJECTIVE: Patient currently sitting up in bed, undergoing hemodialysis. She states that she feels better. She states that her antibiotics have been changed over to oral and that she has begun working with physical therapy. OBJECTIVE: Vital Signs: Temperature 97.5 degrees, pulse 106, respiratory rate 18, blood pressure 97/52, intake 820 mL, output not measured. Physical Examination: General: Elderly female, resting in bed. Undergoing hemodialysis, in no acute distress. HEENT: Normocephalic, atraumatic. Her oral mucosa is moist. Neck: Supple. No JVD noted. Cardiovascular: Regular rate and rhythm. Systolic murmur noted. Pulmonary: Equal excursion. She has some occasional rhonchi bilaterally. No increased work of breathing. Abdomen: Soft with positive bowel sounds. : Not inspected. Minimal void with hemodialysis assist. Extremities: She has trace pretibial edema. No clubbing or cyanosis. Is moving her extremities. Integumentary: Skin is warm and dry. Laboratory Data: WBC of 11.3, hemoglobin 12.2. Sodium 128, potassium 4.5, CO2 20, BUN 55, creatinine 6.1, calcium 8.7. Albumin 2.9. ASSESSMENT AND PLAN: 1. End-stage renal disease management. Today is her routine dialysis day. We will plan to dialyze her on a 2 K bath/UF to dry weight/four hour treatment. Continue her Thursday, Thursday, Thursday schedule while she is in the hospital. 2. Electrolytes, acid-base balance, anemia. See #1 for plan. Anemia is stable. 3. Respiratory status, improved. Again, we will dialyze to dry weight and as tolerated today. Seen, data reviewed, discussed with Slick Vasquez on 04/21/15. I agree with the above assessment and plan of care. rg Dictated by SORAIDA Crawford for Krzysztof Spicer MD [facility]
[2016-04-21] MEDS: PROTONIX IV SCH (15:03)
--- NOTE | 2016-04-21 16:20 | PROGRESS NOTE ---
DATE: 04/11/2016 SUBJECTIVE: Today Ms. Valadez referred to be doing okay, did not actually have any major complaints. OBJECTIVE: Vital signs: Blood pressure is 97/52, pulse of 99, respirations 18 , temperature is 97.5 degrees. General: Ms. Frances, 56-year-old female. She was receiving dialysis at the time of the encounter. She was not in any distress. She was tolerating it without any problem. HEENT: Mucosa was pink and moist. Anicteric. Acyanotic. Neck: Supple. Chest: Good air entry bilaterally. No crepitations. No rhonchi. Cardiovascular: Irregularly irregular but rate controlled. No murmurs, no rubs. No gallops. Abdomen: Soft, nontender. Bowel sounds were present. Extremities: No pedal edema. DIRECTOR OF ENROLLMENT: Patient was alert and oriented x4. There is no focal neurological deficit. LABORATORY DATA: Chemistry is reviewed, is consistent with end-stage renal disease. CURRENT MEDICATIONS: Include. 2. Diltiazem 60 mg p.o. q.8. 3. Lovenox 30 mg subcu. 4. Protonix. DIAGNOSTIC STUDIES: A chest x-ray done this morning shows stable pacemaker, no new infiltrates. ASSESSMENT: 1. Status post cardiac arrest. The patient is doing okay. 2. Hypoxemic respiratory failure status post extubation. Today is day 4. 3. Aspiration pneumonia. Patient was on intravenous antibiotics. This has been switched to p.o. Augmentin for a total of 10 days. She has been on antibiotics for 9 days. Will be left with 1 more day. 4. Congestive heart failure with ejection fraction of 35% on echocardiogram noted. 5. Ischemic cardiomyopathy status post pacemaker. 6. Atrial fibrillation with rapid ventricular response. Patient was on intravenous Cardizem. Is currently on p.o. In general, patient was initially presented to [facility] with respiratory distress and coded and had to be intubated and transferred over here. While here patient has been progressing relatively okay. She was successfully extubated. Heart rate is currently under control and she is participating with physical therapy. PENDING ISSUES: 1. Cardiology wants some form of ischemic workup. Patient normally follows up with Dr. Cruz when he was here and she prefers to follow up with him wherever he is now. I am not quite sure if cardiology would want to do this ischemic workup inpatient or outpatient. We should be able to get some recommendations later on today. 2. We discussed issues about rehab. At this point, patient does not want to do any inpatient rehab and prefers home health with physical rehabilitation. 3. So if cardiology decides to do workup as outpatient then will discharge the patient home today with home health. addendum: Got in touch with cardiology. patient scheduled for stress test tomorrow. MTDD
[2016-04-22] MEDS: HUMALOG SUBQ SCH ×7 (01:17→21:32)
[2016-04-22] MEDS: CARDIZEM PO SCH ×3 (05:18→21:29)
[2016-04-22 06:39] LABS: MANUAL DIFF NEEDED? NO
[2016-04-22 06:51] LABS: BASO% 0.6 % (0.0-0.8); EOS# 0.49 X1000 (0.0-0.7); EOS% 4.5 % (0.0-10.0); HEMATOCRIT 36.4 % (37.0-47.0); HEMOGLOBIN 11.5 g/dL (12.0-16.0); IMM GRAN# 0.08 X1000 (0.0-0.04); IMM GRAN% 0.7 % (0.0-0.5); LYMPH# 1.55 X1000 (1.2-3.4); LYMPH% 14.3 % (20.5-51.1); MCH 31.3 PG (27-31); MCHC 31.6 g/dL (33-37); MCV 99.2 FL (81-99); MONO# 1.64 X1000 (0.11-0.59); MONO% 15.1 % (1.7-9.3); MPV 11.9 FL (7.4-10.4); NEUT% 64.8 % (42.2-75.2); PLT 156 X1000 (130-400); RBC 3.67 XMIL (4.2-5.4)
[2016-04-22 06:56] LABS: ALBUMIN 2.8 g/dL (3.5-5.0); CALCIUM 8.4 mg/dL (8.8-10.2); POTASSIUM 4.2 mmol/L (3.5-5.1); TOTAL BILIRUBIN 1.01 mg/dL (0.20-1.00); TOTAL PROTEIN 6.6 g/dL (6.3-8.3)
[2016-04-22] MEDS: DUONEB (A & A) INH SCH ×5 (08:07→23:22)
--- NOTE | 2016-04-22 10:27 | PROGRESS NOTE ---
DATE: 04/22/2016 SUBJECTIVE: The patient is sitting up on the side of the bed waiting to go for a stress test. OBJECTIVE: Vital Signs: Temperature 98 degrees, pulse 94, respiratory rate 14 , blood pressure 122/73. Intake not measured. Output 2 L on dialysis. Physical Examination: General: Middle-aged female sitting up on the side of the bed. No acute distress. HEENT: Normocephalic, atraumatic. MILAN. Conjunctivae pink. Oral mucosa moist. Neck: Supple. No JVD noted upright. Cardiovascular: Reveals irregular rate and rhythm. Rate controlled. No murmur is appreciated. Pulmonary: She has equal excursion. She has rhonchi posteriorly noted, left greater than right. No overt wheeze. No productive cough. She does have some inspiratory pain secondary to chest compressions previously. Abdomen: Soft. Positive bowel sounds. : Not inspected. Minimal void. Hemodialysis assist. Extremities: No pretibial edema. She is moving all extremities. Integumentary: Skin is warm and dry without rash or lesion. Lab Data: WBC of 10.8, hemoglobin 11.5. Sodium 131, potassium 4.2, CO2 22, BUN 5.3, calcium 8.4, albumin 2.8. ASSESSMENT AND PLAN: 1. End-stage renal disease. Patient underwent her routine dialysis yesterday without difficulty. We will continue her on a Thursday, Thursday, Thursday schedule while she is in the hospital. 2. Electrolytes, acid-base balance, anemia. These are all in target. 3. Respiratory status, improved after dialysis yesterday. 4. Status post cardiac arrest. Patient is to undergo a stress test today per primary and cardiology. 5. Disposition. We understand that she will go to rehabilitation in the near future and will continue dialysis as an outpatient if she is not in the hospital tomorrow. Data reviewed, discussed with Slick Vasquez on 04/22/16. I agree with the above assessment and plan of care. rg Dictated by SORAIDA Crawford for Krzysztof Spicer MD [facility]
--- NOTE | 2016-04-22 10:54 | PROGRESS NOTE ---
DATE: 04/22/2016 SUBJECTIVE: This morning Ms. Yvrose Valadez referred to be doing a whole lot better. Still has some chest discomfort from the previous some CPR. OBJECTIVE: General exam: Vitals: Blood pressure is 117/64, pulse of 90, respirations 16, temperature is 98.0 degrees. General exam: Ms. Valadez, a 56-year-old female, morbidly obese, has body mass index of 43.9. She was in bed. She did not seems to be in any distress. HEENT: Mucosa is pink and moist. Anicteric. Acyanotic. Neck: Neck is supple. Chest: Air entry is bilaterally reduced. There are some coarse crepitations in both lung reveles posteriorly. Cardiovascular: Regular rate and rhythm. No murmurs, no rubs, no gallops. Abdomen: Soft, distended, but nontender. Bowel sounds were present. Extremities: No pedal edema. SOCIAL PROFESSIONALS: Patient is alert and oriented x4. There is no focal neurological deficit. LABORATORY DATA: WBC is 10.87, hemoglobin is 11.5, platelet count of 156. Chemistry reviewed: Nothing of concern consistent with electrolytes for end-stage renal disease. ASSESSMENT: 1. Status post cardiac arrest. 2. Hypoxemic respiratory failure, status post extubation. Today is day five. 3. Aspiration pneumonia. Patient is on Augmentin for a total of 10 days. 4. Congestive heart failure. Ejection fraction of 35% on an echocardiogram. 5. Ischemic cardiomyopathy, status post pacemaker. 6. Atrial fibrillation with rapid ventricular response. Currently rate controlled. 7. End-stage renal disease on hemodialysis via a tunnel catheter on the right upper chest. PLAN: I reviewed her lab medications, and I do not plan to make any changes for today. The patient is pending a stress test this afternoon as per cardiology; if stress test is unremarkable, we will be able to discharge her home. I did discuss rehab with the patient, but she does not want to do any inpatient rehab. She will prefer to go home with home health.
[2016-04-22] MEDS: NORCO-5 PO PRN ×4 (11:17→21:41)
[2016-04-22] MEDS ORDERED: LEXISCAN ONE (12:29)
[2016-04-22] MEDS: LOVENOX SUBQ SCH (14:48)
[2016-04-22] MEDS: AUGMENTIN PO SCH ×2 (14:48→21:29)
[2016-04-22] MEDS: CULTURELLE PO SCH ×2 (14:48→21:29)
[2016-04-23] MEDS: HUMALOG SUBQ SCH ×6 (01:12→22:44)
[2016-04-23] MEDS: DUONEB (A & A) INH SCH ×6 (03:36→23:45)
[2016-04-23] MEDS: NORCO-5 PO PRN ×3 (03:57→18:07)
[2016-04-23] MEDS: CARDIZEM PO SCH ×3 (05:49→22:14)
[2016-04-23 07:35] LABS: ALBUMIN 2.9 g/dL (3.5-5.0); CALCIUM 8.4 mg/dL (8.8-10.2); POTASSIUM 4.1 mmol/L (3.5-5.1); TOTAL BILIRUBIN 0.82 mg/dL (0.20-1.00); TOTAL PROTEIN 6.5 g/dL (6.3-8.3)
[2016-04-23] MEDS ORDERED: TIGHT: 0.2 ML/HR MISC PRN (07:57)
[2016-04-23] MEDS ORDERED: HEPARIN IV PRN (07:57)
[2016-04-23] MEDS ORDERED: NS 2,000 ML MISC PRN (07:57)
[2016-04-23] MEDS ORDERED: NORCO-5 ONE (10:06)
[2016-04-23] MEDS ORDERED: BENADRYL ONE (10:09)
[2016-04-23] MEDS: BENADRYL IV PRN (10:25)
--- NOTE | 2016-04-23 11:28 | PROGRESS NOTE ---
DATE: 04/23/2016 TIME SEEN: 0800 a.m. SUBJECTIVE: The patient is sitting up on the side of the bed. She states that she is allergic to the detergent used to clean the sheets and is wearing her street clothing. OBJECTIVE: Vital Signs: Temperature 97.8 degrees, pulse 102, respiratory rate 21, blood pressure 100/52. Intake and Output: None recorded. PHYSICAL EXAMINATION: General: Middle-aged female sitting up on the side of the bed. No acute distress. HEENT: Normocephalic, atraumatic. MILAN, conjunctivae pink. Oral mucosa moist. Neck is supple. No JVD. Cardiovascular: Irregular rate and rhythm. No murmur appreciated. Pulmonary: Equal excursion. She is clear bilaterally today. She has no increased work of breathing. Abdomen is soft with positive bowel sounds. : Not inspected. Minimal void with hemodialysis assist. Extremities: She has trace pretibial edema. No clubbing or cyanosis. She is ambulatory. Integumentary: Skin is warm and dry. No lesions noted. She has some ecchymoses. Fine rash noted to the back. LABORATORY DATA: Sodium 128, potassium 4.1, CO2 of 22. BUN 47, creatinine 6.6. ASSESSMENT AND PLAN: 1. End-stage renal disease management. Today is her routine dialysis day. We will dialyze her on a 2 K bath/3 L UF or as tolerated/4-hour treatment. Continue this schedule while she is in the hospital. 2. Electrolytes, acid-base balance, are in target. See #1 for plan. 3. Respiratory status. She appears improved. 4. Status post cardiac arrest; followed by Primary and Cardiology. Seen, data reviewed, discussed with Slick Vasquez on 04/23/16. I agree with the above assessment and plan of care. rg Dictated by SORAIDA Crawford for Krzysztof Spicer MD [facility]ITAL[facility]
[2016-04-23] MEDS: AUGMENTIN PO SCH (13:12)
[2016-04-23] MEDS: CULTURELLE PO SCH ×2 (13:12→22:14)
[2016-04-23] MEDS: LOVENOX SUBQ SCH (13:12)
--- NOTE | 2016-04-23 14:34 | PROGRESS NOTE ---
DATE: 04/23/2016 SUBJECTIVE: Today Ms. Valadez referred to be doing a whole lot better. She denies any shortness of breath. She still has this musculoskeletal chest discomfort since the CPR. OBJECTIVE: Vital signs: Blood pressure is 100/51, pulse of 97, respiration is 17, temperature is 98.3 degrees. General Exam: Ms. Valadez is a 56-year-old female. She was in bed, in no distress. HEENT: Mucosa is pink and moist. Anicteric. Acyanotic. Neck: Supple. Chest: Good air entry bilaterally. There are a few coarse crepitations in both lung reveles posteriorly. Cardiovascular: Regular rate and rhythm. No murmurs, no rubs. No gallops. Abdomen: Soft, distended, but nontender. Extremities: No pedal edema. FINISHER SPECIAL STOCKS: Patient is alert and oriented x4. There is no focal neurological deficit. LABORATORY DATA: Chemistry is reviewed and consistent with end-stage renal disease. ASSESSMENT/PLAN: 1. Status post cardiac arrest. 2. Hypoxemic respiratory failure status post extubation, today is day 6 post extubation. 3. Aspiration pneumonia. Patient has been treated for 10 days with antibiotics so we will discontinue that. 4. Congestive heart failure. Ejection fraction of 25% on echo. 5. Ischemic cardiomyopathy status post pacemaker. 6. Atrial fibrillation with rapid ventricular response. Currently rate controlled. 7. End stage renal disease on hemodialysis by tunneled catheter on the right upper chest. So in general patient is relatively stable. She got admitted because she arrested at [facility] and was brought in here. Initially was intubated and was successfully extubated. Cardiology is following her up and the plan is to have her do a stress test before we get her discharged. Yesterday they did the resting part of the stress test and she had some wheezing so they stopped, they did not do the stress part. Today we are hoping that can be done. If that is done and it is unremarkable patient can be discharged tomorrow. We did discuss about rehab options with the patient but she prefers to go home with home health.
[2016-04-24] MEDS: NORCO-5 PO PRN ×3 (00:07→20:07)
[2016-04-24] MEDS: BENADRYL IV PRN (00:08)
[2016-04-24] MEDS: HUMALOG SUBQ SCH ×6 (02:12→21:47)
[2016-04-24] MEDS: DUONEB (A & A) INH SCH ×6 (03:17→23:03)
[2016-04-24] MEDS: CARDIZEM PO SCH ×3 (05:33→20:07)
--- NOTE | 2016-04-24 06:36 | Diag Imaging Result Document ---
PROCEDURE NAME: CHEST-PORTABLE - 04/24/2016 PORTABLE CHEST: COMPARISON: Compared to 04/21/2016. FINDINGS: No change in the double-lumen right-sided catheter. The patient has a left-sided pacemaker. The heart remains enlarged. The vessels are not distended. Likely atelectasis in the right base. No consolidation. No pleural effusions identified. IMPRESSION: The lungs are slightly better aerated on the current exam.
[2016-04-24 07:11] LABS: ALBUMIN 2.6 g/dL (3.5-5.0); CALCIUM 8.7 mg/dL (8.8-10.2); POTASSIUM 3.9 mmol/L (3.5-5.1); TOTAL BILIRUBIN 0.89 mg/dL (0.20-1.00); TOTAL PROTEIN 6.3 g/dL (6.3-8.3)
[2016-04-24] MEDS: CULTURELLE PO SCH ×2 (10:05→20:07)
[2016-04-24] MEDS: LOVENOX SUBQ SCH (10:05)
--- NOTE | 2016-04-24 13:51 | PROGRESS NOTE ---
DATE: 04/24/2016 SUBJECTIVE: She is awake and alert. She states she feels better. Feels like she is getting stronger and making preparations on trying to go home. Needs to be able to ambulate a little more and a little stronger by her words. OBJECTIVE: Vital signs: Temp 98.5 degrees, pulse 90, respirations 18, blood pressure 97/41. HEENT: Pupils are equal and round. Neck: CVP less than 6 cm. Lungs: Clear in all lung reveles. Cardiovascular: Regular rhythm and rate without murmur or S3. Abdomen: Soft. Skin: Warm and dry. Intake and output: Urine output 1620. LAB: Chemistry: Sodium 133, potassium 3.9, chloride 91, bicarb 22, BUN 35, creatinine 6.1. Blood sugars 180, 184, 189. Note, she had a chest x-ray today. Lungs are slightly better aerated. No change double-lumen right-sided catheter. Patient has a left-sided pacemaker. Heart remains enlarged. Vessels are not distended. Likely atelectasis in the right base. No pleural effusions identified. ASSESSMENT: 1. Status post cardiac arrest. 2. Hypoxemic respiratory failure status post extubation. Today is the 7th day post extubation. 3. Aspiration pneumonia which has improved. She has been treated for 10 days with antibiotics, was discontinued yesterday. 4. Congestive heart failure. Ejection fraction 25% on echocardiogram. Well compensated at present time. 5. Ischemic cardiomyopathy status post pacemaker. 6. Atrial fibrillation rapid ventricular response. Rate controlled. 7. End-stage renal disease. On hemodialysis by tunnel catheter in the right upper chest. PLAN: Patient is stable. She arrested at [facility] and was brought here, successfully intubated. Cardiology has a plan to do a stress test before we get her discharged. Continue physical therapy. I looked over her orders and I do not see any change at this point. She is on Cardizem 60 mg q.8, lactobacillus, or probiotic 1 p.o. b.i.d., Lovenox 30 mg subcutaneously q.24 hours.
--- NOTE | 2016-04-24 16:30 | PROGRESS NOTE ---
DATE: 04/24/2016 SUBJECTIVE: Patient is sitting up in bed. She states that she was unable to complete the stress part of her stress test today secondary to wheezing and increased work of breathing. OBJECTIVE: Vital Signs: Temperature 98.5 degrees, pulse 93, respiratory rate 18, blood pressure 97/41. Intake 480 mL; output 1.6 L. General: On exam, this is a middle-aged female sitting up in bed. She is awake, alert. She is in no acute distress. HEENT: She is normocephalic, atraumatic. Oral mucosa moist. Neck: Supple. There is perhaps trace JVD. Cardiovascular: Regular rate and rhythm. No murmur. Pulmonary: Equal excursion. She has rhonchi bilaterally. She has some decreased breath sounds to the lower bases. Abdomen: Obese, soft , positive bowel sounds. : Not inspected. Minimal void. Extremities: She has trace to 1+ pretibial edema. No clubbing or cyanosis. She remains ambulatory. Integumentary: Skin is warm and dry with ecchymoses noted. LAB DATA: Sodium 133, potassium 3.9, CO2 22, BUN 35, creatinine 6.1, calcium 8.7 and albumin 2.6. ASSESSMENT AND PLAN: 1. End-stage renal disease management. The patient routinely dialyzes on a Thursday, Thursday, Thursday schedule. We will try to dialyze her in the morning prior to her going for a stress test in an effort to optimize her fluid status and respiratory status. 2. Electrolytes, acid-base balance. These have been stable. Check labs in the morning. Adjust her dialysis bath as warranted. 3. Respiratory status. She has had coarser breath sounds today than previous. She has not been using IS. 4. Status post cardiac arrest followed by primary and cardiology. Seen, data reviewed, discussed with Slick Vasquez on 04/24/16. I agree with the above assessment and plan of care. rg Dictated by SORAIDA Crawford for Krzysztof Spicer MD [facility]
[2016-04-25] MEDS: NORCO-5 PO PRN ×5 (01:10→23:25)
[2016-04-25] MEDS: DUONEB (A & A) INH SCH ×6 (03:16→23:22)
[2016-04-25] MEDS: HUMALOG SUBQ SCH ×6 (05:52→20:09)
[2016-04-25] MEDS: CARDIZEM PO SCH ×3 (05:58→20:08)
[2016-04-25 06:53] LABS: ALBUMIN 2.9 g/dL (3.5-5.0); CALCIUM 8.8 mg/dL (8.8-10.2); POTASSIUM 4.2 mmol/L (3.5-5.1); TOTAL BILIRUBIN 0.8 mg/dL (0.20-1.00); TOTAL PROTEIN 6.5 g/dL (6.3-8.3)
[2016-04-25] MEDS ORDERED: HEPARIN IV PRN (06:55)
[2016-04-25] MEDS ORDERED: TIGHT: 0.2 ML/HR MISC PRN (06:55)
[2016-04-25] MEDS ORDERED: NS 2,000 ML MISC PRN (06:55)
--- NOTE | 2016-04-25 08:07 | Diag Imaging Result Document ---
PROCEDURE NAME: MYOCARDIAL PERFU SCAN, REST - 04/22/2016 STUDY: Resting gated myocardial perfusion study. INDICATION: Patient who is status post cardiac arrest, atrial fibrillation. DESCRIPTION: The patient came into the Nuclear Lab and received a total of 38.0 millicuries. The resting views of the left ventricle were obtained. SUMMARY OF FINDINGS: Resting tomographic views of the left ventricle showed severe extensive anteroapical and inferoapical defect. The polar plot shows a very extensive apical anterior and inferoapical scar/ defect. The gated SPECT shows a significantly impaired ejection fraction estimated at 28 % using the Humberto II protocol and 27% using the Myometrix protocol. There is akinesis of the anteroapical segment. The lung/heart ratio is elevated at 0.47. IMPRESSION: In summary, this study shows: 1. Abnormal resting myocardial perfusion study. There is a scintigraphic suggestion of an extensive anteroapical/inferoapical scar. The possibility of resting myocardial ischemia is deemed to be a lot less likely. 2. Significantly impaired left ventricular systolic function. Ejection fraction estimated at 28% with anteroapical akinesis and significantly increased ventricular volumes. In addition, there is suggestion of elevation of the left ventricular end diastolic pressure/ diastolic dysfunction. 3. Stress test was canceled because of the patient's poor general status. Clinical correlation recommended. MTDD
[2016-04-25] MEDS ORDERED: NS 2,000 ML ONE ×2 (09:21→12:16)
--- NOTE | 2016-04-25 09:26 | PROGRESS NOTE ---
DATE: 04/25/2016 SUBJECTIVE: She is sitting up. She is eating her breakfast. No shortness of breath, nausea or vomiting. OBJECTIVE: Vital Signs: Blood pressure 112/60. Heart rate 88, respirations 19, afebrile. Intake 400 mL. Output 200 mL. General: Obese woman, sitting up in no distress. Skin: Warm and dry. Conjunctivae are pink. Neck: Neck veins are not distended. Heart: Regular with systolic murmur. PMI is displaced. Lungs: Have equal breath sounds with few wheezes. Abdomen: Obese and soft. Bowel sounds are present. Extremities: Have trace edema. No clubbing or cyanosis. LABORATORY DATA: Sodium 132, potassium 4.2, chloride 88, bicarbonate 20, BUN 43, creatinine 6.7. Hemoglobin 11.5. IMPRESSION: 1. End-stage kidney disease: She will have her routine hemodialysis today and we will target her last post-treatment weight. 2. Electrolytes are in target. Two K bath today. 3. Anemia is stable. 4. Respiratory failure, resolved.
--- NOTE | 2016-04-25 09:34 | Diag Imaging Result Document ---
PROCEDURE NAME: CHEST-2 VIEWS - 04/25/2016 FRONTAL AND LATERAL CHEST, TWO VIEWS: COMPARISON: 04/24/2016. FINDINGS: There is a left-sided pacemaker and right-sided catheter. No pneumothoraces. The lungs are well expanded. The heart remains mildly enlarged. No pleural effusions. No consolidation. IMPRESSION: Mild cardiomegaly.
[2016-04-25] MEDS ORDERED: NORCO-5 ONE (10:57)
[2016-04-25] MEDS ORDERED: HEPARIN ONE (12:16)
--- NOTE | 2016-04-25 15:22 | PROGRESS NOTE ---
DATE: 04/25/2016 Ms. Valadez feels better. She is able to walk a little further and she feels confident about trying to go home in the morning. She would like to have another day of physical therapy. She is eating better. Breathing is comfortable. EXAM: Today temp 98.0 degrees, pulse 88, respirations 19, blood pressure 122/60. HEENT: The pupils are equal, round. Lungs: Clear in all lung reveles. Cardiovascular: Regular rhythm and rate without murmur or S3. Abdomen: Soft, nontender, nondistended. Positive bowel sounds. No hepatosplenomegaly. Extremities: Without clubbing, cyanosis, or edema. Urine output good at 220 mL. X-ray from this morning. Mild cardiomegaly, left-sided pacemaker, right-sided catheter. No pneumothorax. ASSESSMENT AND PLAN: 1. End-stage renal disease, volume status, electrolytes look good. I think the plan is for her to go home tomorrow morning. 2. Electrolytes on target. 3. Anemia stable. 4. Respiratory failure which has resolved. 5. Status post cardiac arrest. Hope to get her home in the morning.
[2016-04-25] MEDS: CULTURELLE PO SCH ×2 (18:09→20:08)
[2016-04-25] MEDS: LOVENOX SUBQ SCH (18:35)
[2016-04-25] MEDS: ASPIRIN PO SCH (18:35)
[2016-04-25] MEDS: RANEXA PO SCH ×2 (18:36→20:08)
[2016-04-25] MEDS: PLAVIX PO SCH (18:37)
[2016-04-25] MEDS: IMDUR PO SCH (18:37)
[2016-04-25] MEDS: ZOCOR PO SCH (20:08)
[2016-04-26] MEDS: HUMALOG SUBQ SCH ×6 (00:47→20:08)
[2016-04-26] MEDS: DUONEB (A & A) INH SCH ×6 (03:00→23:23)
[2016-04-26 06:33] LABS: ALBUMIN 3.1 g/dL (3.5-5.0); CALCIUM 8.5 mg/dL (8.8-10.2); POTASSIUM 3.6 mmol/L (3.5-5.1); TOTAL BILIRUBIN 0.74 mg/dL (0.20-1.00)
[2016-04-26] MEDS: NORCO-5 PO PRN ×2 (07:33→13:23)
[2016-04-26] MEDS: IMDUR PO SCH (08:50)
[2016-04-26] MEDS: RANEXA PO SCH ×2 (08:50→20:08)
[2016-04-26] MEDS: CULTURELLE PO SCH ×2 (08:50→20:08)
[2016-04-26] MEDS: ASPIRIN PO SCH (08:50)
[2016-04-26] MEDS: CARDIZEM CD PO SCH (08:50)
[2016-04-26] MEDS: PLAVIX PO SCH (08:50)
[2016-04-26] MEDS: LOVENOX SUBQ SCH (10:02)
--- NOTE | 2016-04-26 13:18 | PROGRESS NOTE ---
DATE: 04/26/2016 CHIEF COMPLAINT: Cough, dyspnea, abnormal EKG. SUBJECTIVE: Mrs. Valadez is generally improving. She is having a more productive cough. Her dyspnea has gone away. She has not noted herself wheezing. OBJECTIVE: Vital signs: Her blood pressure is 109/42, temperature 98 degrees, pulse 83, respirations 16. General: She is awake, alert, chronically ill, obese. She weighs 255 pounds. HEENT: Unremarkable. Chest: Chest is much clearer now. I do not hear any wheezes. Very occasional some crepitant that clears up with cough. Cardiovascular: Heart sounds are regular. I do not hear any gallop or murmur. Abdomen: Abdomen is obese, nontender. 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 She also has a dialysis catheter in the right anterior chest. Her femoral pulse is about 2+/4+ in intensity. She has significant adiposity in the legs. Neurological exam: She moves four extremities. She has no obvious deficit. LABORATORY: Blood work: Sodium 138, potassium 3.6, BUN 28, creatinine 5.6. Albumin is 3.1. IMPRESSION: 1. Patient who is known to have severe coronary heart disease, previous stents. 2. Patient suffered cardiac arrest. This probably has something to do with her ischemic cardiomyopathy. 3. Patient has end-stage renal disease, on hemodialysis. RECOMMENDATIONS: Per Dr. Martinez's conversation with patient, left heart catheterization has been discussed. We will consider doing that on Thursday. We will have to approach her through the right femoral artery due to the existence of a fistula in the right upper extremity. Further advice will be forthcoming.
[2016-04-26] MEDS: TYLENOL PO PRN ×2 (13:53→20:08)
--- NOTE | 2016-04-26 14:53 | PROGRESS NOTE ---
DATE: 04/26/2016 SUBJECTIVE: Ms. Valadez is feeling good. She is sitting up on the edge of the bed. Unfortunately, they are going to pursue heart catheterization so she cannot go home. She feels good. No chest pain, but she has known severe coronary artery disease. She suffered a cardiac arrest. Plan is to do a left heart catheterization tomorrow. EXAMINATION: Today, afebrile. Temperature 98.5 degrees, pulse 98, respirations 18, blood pressure 90/59. Lungs are clear in all lung reveles. Cardiovascular: Regular rhythm and rate without murmur or S3. Abdomen is soft. Skin is warm and dry. Note, I said she is going to have a heart catheterization tomorrow; I meant on Thursday; this is Thursday, so he will stay and have the heart catheterization on Thursday. LABORATORY DATA: Review of her lab. No new labs this morning. I reviewed lab from yesterday. Unremarkable. Serum creatinine is 5.6, but she has end-stage renal disease. ASSESSMENT AND PLAN: 1. End-stage renal disease. Continue routine hemodialysis, her volume electrolytes and acid base look appropriate. 2. Known severe coronary artery disease. Left heart catheterization on Thursday. 3. Status post cardiac arrest. Good recovery. 4. Anemia, stable. REVIEW OF ORDERS: I do not see any change. MEDICATIONS: 1. Diltiazem CD 180 mg daily. 2. Zocor 40 mg a day. 3. Isosorbide mononitrate 60 mg a day. 4. Ranolazine ER 500 mg b.i.d. 5. Plavix 75 mg a day. 6. Aspirin 325 mg a day. 7. Lactobacillus 1 b.i.d. 8. Lovenox 30 mg subcutaneous daily. 9. She gets hydrocodone p.r.n.
[2016-04-26] MEDS: ZOCOR PO SCH (20:08)
[2016-04-27] MEDS: DUONEB (A & A) INH SCH ×6 (02:40→23:22)
[2016-04-27] MEDS: TYLENOL PO PRN ×3 (05:25→22:50)
[2016-04-27] MEDS: HUMALOG SUBQ SCH ×5 (05:32→22:45)
[2016-04-27 06:52] LABS: ALBUMIN 2.8 g/dL (3.5-5.0); CALCIUM 8.6 mg/dL (8.8-10.2); POTASSIUM 4.2 mmol/L (3.5-5.1); TOTAL BILIRUBIN 0.65 mg/dL (0.20-1.00); TOTAL PROTEIN 6.2 g/dL (6.3-8.3)
[2016-04-27] MEDS: CULTURELLE PO SCH ×2 (09:01→22:45)
[2016-04-27] MEDS: ASPIRIN PO SCH (09:01)
[2016-04-27] MEDS: IMDUR PO SCH (09:01)
[2016-04-27] MEDS: CARDIZEM CD PO SCH (09:02)
[2016-04-27] MEDS: RANEXA PO SCH ×2 (09:02→22:45)
[2016-04-27] MEDS: PLAVIX PO SCH (09:02)
[2016-04-27] MEDS: LOVENOX SUBQ SCH (10:49)
--- NOTE | 2016-04-27 18:10 | PROGRESS NOTE ---
DATE: 04/27/2016 SUBJECTIVE: Ms Valadez feels good today. She states she has a little spotting whenever she is on anticoagulant, asked we could hold her Lovenox and she has also had trouble with retinal hemorrhage and was concerned that was going to make that worse as well. She is expecting a left heart catheterization tomorrow. She remains afebrile. OBJECTIVE: Vital signs: Temp 95.6 degrees, pulse 78, respirations 20, blood pressure 108/79. Lungs: Are clear anterolateral and posterior. Cardiovascular: Regular rhythm, rate without murmur, S3. Abdomen: Soft. Skin: Is warm and dry. Urine output was about 800 mL. Blood sugars have been 99, 170, 205. ASSESSMENT AND PLAN: 1. Patient with known coronary artery disease and previous stents had suffered cardiac arrest and probably had something to with ischemic cardiomyopathy. Plan is left heart catheterization tomorrow. 2. End-stage renal disease on hemodialysis. 3. Anemia which is stable. She requested we stop or hold the dose on Lovenox which will stop at this time. MEDICATIONS: She is on Cardizem CD 180 mg daily, Zocor 40 mg daily, isosorbide 60 mg daily, is on Ranexa 500 mg b.i.d., she is on Plavix 75 mg a day, aspirin 325 mg daily, lactobacillus 1 b.i.d. and will hold the Lovenox and continue her other medications as before.
[2016-04-27] MEDS: ZOCOR PO SCH (22:45)
[2016-04-28] MEDS ORDERED: TYLENOL PR ONE (03:21)
[2016-04-28] MEDS: HUMALOG SUBQ SCH ×5 (03:34→17:12)
[2016-04-28] MEDS: DUONEB (A & A) INH SCH ×6 (03:40→23:05)
[2016-04-28] MEDS ORDERED: D50W SYRINGE ONE (06:02)
[2016-04-28] MEDS: D50W SYRINGE IV ONE ×2 (06:32→07:30)
[2016-04-28] MEDS ORDERED: TIGHT: 0.2 ML/HR MISC PRN (06:35)
[2016-04-28] MEDS ORDERED: NS 2,000 ML MISC PRN (06:35)
[2016-04-28] MEDS ORDERED: HEPARIN IV PRN (06:35)
[2016-04-28 07:10] LABS: HEMATOCRIT 33.3 % (37.0-47.0); HEMOGLOBIN 10.5 g/dL (12.0-16.0); MCHC 31.5 g/dL (33-37); MCV 101.5 FL (81-99); MPV 11.5 FL (7.4-10.4); RBC 3.28 XMIL (4.2-5.4)
[2016-04-28 07:14] LABS: INR 1.09; PROTIME 11.6 Seconds (9.2-11.7)
[2016-04-28 07:22] LABS: ALBUMIN 2.8 g/dL (3.5-5.0); CALCIUM 8.6 mg/dL (8.8-10.2); POTASSIUM 4.3 mmol/L (3.5-5.1); TOTAL BILIRUBIN 0.53 mg/dL (0.20-1.00); TOTAL PROTEIN 6.2 g/dL (6.3-8.3)
--- NOTE | 2016-04-28 08:31 | PROGRESS NOTE ---
DATE: 04/28/2016 SUBJECTIVE: She had hypoglycemia overnight and was treated with IV glucose. She is on nothing by mouth this morning. Anticipating another cardiac test. OBJECTIVE: Vital Signs: Blood pressure 115/54, heart rate 69, respiration 18, afebrile. Physical Examination: General: Chronically ill, middle-aged woman, sitting up, in no distress. Skin: Warm and dry. HEENT: Conjunctivae are pink. Neck: Neck veins are not visible. Heart: Regular with a systolic murmur. No change. Lungs: Have equal breath sounds. No crackles. Abdomen: Soft and obese and nontender. Bowel sounds are present. Extremities: Have 1 to 2+ edema up to the knee. No clubbing or cyanosis. Laboratory Data: Pending. IMPRESSION: 1. End-stage kidney disease: She will have her routine hemodialysis treatment today using a 2 potassium bath and we will target our lowest inpatient dry weight today. I counseled her again today about her fluid restrictions. She has obviously accumulated fluid over the weekend. She is adamant that she is holding to her restrictions. 2. Hypertension, in target. 3. Status post cardiopulmonary arrest, resolved.
[2016-04-28] MEDS ORDERED: HEPARIN ONE (08:44)
[2016-04-28] MEDS ORDERED: NS 2,000 ML ONE (08:44)
[2016-04-28] MEDS: CULTURELLE PO SCH ×2 (10:49→20:07)
[2016-04-28] MEDS: RANEXA PO SCH ×2 (10:49→20:07)
[2016-04-28] MEDS: CARDIZEM CD PO SCH (10:49)
[2016-04-28] MEDS: ASPIRIN PO SCH (10:49)
[2016-04-28] MEDS: PLAVIX PO SCH (10:50)
[2016-04-28] MEDS: IMDUR PO SCH (10:50)
[2016-04-28] MEDS: TYLENOL PO PRN (14:31)
[2016-04-28] MEDS ORDERED: QUESTRAN LIGHT PO ONE (16:02)
--- NOTE | 2016-04-28 17:41 | PROGRESS NOTE ---
DATE: 04/28/2016 SUBJECTIVE: She had a pretty uneventful night preparing for heart catheterization this morning. OBJECTIVE: Vital Signs: Temp 97.5 degrees, pulse 80, respirations 16, blood pressure 112/45. HEENT: Pupils are equal, round. CVP: Less than 6 cm. Lungs: Clear in all lung reveles. Cardiovascular Examination: Regular rhythm and rate without murmur or S3. Abdomen: Soft. Skin is warm and dry. MEDICATIONS: She is on Cardizem CD 180 mg daily, Zocor 40 mg at bedtime, isosorbide mononitrate 60 mg a day, Ranexa 500 mg b.i.d., Plavix 75 mg daily, aspirin 325 mg daily, lactobacillus 1 b.i.d. she is on. I do not see any changes. ASSESSMENT AND PLAN: 1. End-stage kidney disease. Routine hemodialysis was done today. He is in a [address] Spicer was targeting lowest inpatient dry weight for heart catheterization. He accumulated some fluid over the weekend. 2. Hypertension on target. 3. Status post cardiopulmonary arrest. Probably needs a left heart catheterization. In review of her orders, I do not see any change.
[2016-04-28] MEDS: ZOCOR PO SCH (20:07)
[2016-04-29] MEDS: HUMALOG SUBQ SCH ×5 (00:10→15:08)
[2016-04-29] MEDS: TYLENOL PO PRN ×2 (00:10→11:53)
--- NOTE | 2016-04-29 02:29 | PROGRESS NOTE ---
DATE: 04/28/2016 ADDENDUM REPORT: She is complaining of loose stool. She is concerned she did not get her heart catheterization done today. We will plan on it tomorrow. We will give her a little Questran Light and see if that will help. Otherwise looks comfortable. Had dialysis this morning.
[2016-04-29] MEDS: DUONEB (A & A) INH SCH ×4 (03:16→14:57)
[2016-04-29 06:36] LABS: HEMATOCRIT 34.6 % (37.0-47.0); HEMOGLOBIN 10.8 g/dL (12.0-16.0); MCHC 31.2 g/dL (33-37); MCV 102.4 FL (81-99); MPV 10.9 FL (7.4-10.4); RBC 3.38 XMIL (4.2-5.4)
[2016-04-29 06:46] LABS: INR 1.06; PROTIME 11.2 Seconds (9.2-11.7)
[2016-04-29 07:19] LABS: ALBUMIN 2.7 g/dL (3.5-5.0); CALCIUM 8.8 mg/dL (8.8-10.2); POTASSIUM 4.2 mmol/L (3.5-5.1); TOTAL BILIRUBIN 0.65 mg/dL (0.20-1.00); TOTAL PROTEIN 6.1 g/dL (6.3-8.3)
[2016-04-29] MEDS ORDERED: HEPARIN 1000 UNITS/NS 1,000 ML ONE (08:30)
[2016-04-29] MEDS ORDERED: VERSED ONE (10:36)
[2016-04-29] MEDS ORDERED: DEMEROL ONE (10:36)
[2016-04-29] MEDS ORDERED: CLAVE TWINSITE 32 IN 11959 ONE (10:38)
[2016-04-29] MEDS ORDERED: NS 1,000 ML ONE (10:39)
[2016-04-29] MEDS ORDERED: CLAVE PUMP SET NO FILTER 12260 ONE (10:39)
[2016-04-29] MEDS: ASPIRIN PO SCH (11:53)
[2016-04-29] MEDS: CULTURELLE PO SCH (11:53)
[2016-04-29] MEDS: CARDIZEM CD PO SCH (11:53)
[2016-04-29] MEDS: IMDUR PO SCH (11:54)
[2016-04-29] MEDS: RANEXA PO SCH (11:54)
[2016-04-29] MEDS: PLAVIX PO SCH (11:54)
--- NOTE | 2016-04-29 11:55 | CARDIAC CATH REPORT ---
DATE: 04/29/2016 PROCEDURES PERFORMED: 1. Left heart catheterization. 2. Selective coronary angiogram. 3. Left ventriculogram. 4. Opacification of right femoral artery with deployment of 6-Honduran Angio-Seal device. HISTORY OF PRESENT ILLNESS: Ms. Valadez is a 56-year-old female who is a dialysis patient, presented with cardiac arrest. She had to have CPR. She is known to have previous severe multivessel coronary artery disease and previous stents. After being evaluated , recommendation was made to proceed with cardiac catheterization to confirm or rule out the presence of progression of coronary artery disease. Benefits, risks and complications were explained to her in detail. She understood and requested to proceed. 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 She received 1 mg of Versed and 25 mg of Demerol for sedation. Right groin was prepped and draped in sterile fashion and anesthetized with lidocaine 1%. Using 6-Honduran sheath, the right femoral artery was cannulated. Then the coronary arteries were opacified with 6-Honduran left Franklin 4 and right Franklin 4 catheters. The aortic valve was negotiated. Left ventricular pressure was determined. Left ventriculogram was performed in 60 degree BELARUSIAN projection and 30 degree GUPTA projection by hand injection. At the end of the procedure, all of the catheters were removed. The right femoral artery was opacified, and then an Angio-Seal device was deployed successfully. The patient tolerated the procedure well without any complications. SUMMARY OF HEMODYNAMIC FINDINGS: Central aortic pressure is 90/50. Left ventricular pressure is 89/8. Post LV gram was 96/8. Final central aortic pressure is 97/47. SUMMARY OF ANGIOGRAPHIC FINDINGS: 1. Left main coronary artery: This vessel reveals a 60% to 70% distal stenosis. The left main divides into LAD and circumflex. 2. Left anterior descending coronary artery: This vessel shows diffuse disease in the order of 30% to 40% prior to giving rise to a septal branch and a first tiny diagonal. Immediately thereafter, it gives rise to a medium size diagonal branch which is at least 2 mm. Immediately thereafter, the LAD is totally occluded. 3. Circumflex coronary artery: The circumflex coronary artery is a nondominant vessel. It gives rise to a sinus romie branch. Proximally it gives rise to a high lateral vessel which is 2 mm in caliber, it covers a relatively small area of myocardium. It then gives rise to a tiny lateral branch. Thereafter, the circumflex shows a 60% to 70% stenosis. This is prior to the origin of the terminal lateral branch which is tortuous and free of any obstruction. 4. Right coronary artery: The right coronary artery is dominant. This is diffusely diseased. The right coronary artery gives rise to atrial branch and acute marginal branch. There are several stents noted within the right coronary artery that appear to be patent. The most proximal one has a proximal stenosis of about 50% to 60% and distally is around 50%. The midsection of the right coronary artery appears to be patent. Distally the right coronary artery gives rise to a posterior descending branch and a posterolateral vessel. The posterior descending branch is technically a suitable target for coronary artery bypass grafting. The marginal branch of the circumflex is also a suitable branch, and the diagonal branch of the LAD is also a suitable branch for bypass. LEFT VENTRICULOGRAM: Left ventriculogram in the 60 degree BELARUSIAN projection and 30 degree GUPTA projection reveals enlargement of the left ventricular chamber with anteroapical septal akinesis. Ejection fraction is 30% to 35%. No mitral regurgitation noted. FLUOROSCOPY: Reveals extensive calcification of the right coronary artery, the LAD, the right femoral artery, and also there is presence of defibrillator lead within the right ventricular chamber. There are also dialysis catheters noted within the renal system. OPACIFICATION OF RIGHT FEMORAL ARTERY: Right femoral artery shows diffuse calcification without any significant obstruction. Angio-Seal device was deployed successfully. CONCLUSIONS: 1. Severe multivessel coronary artery disease with a significant left main stenosis, total occlusion of LAD and moderate to severe stenosis of the circumflex. There is also in-stent restenosis of 60% in the proximal right coronary artery and about 50% to 60% in the distal portion. 2. Significant left ventricular enlargement with impaired function. Ejection fraction 30% to 35%. 3. Normal LVEDP. 4. No mitral regurgitation. No aortic stenosis. 5. Opacification of right femoral artery with deployment of 6-Honduran Angio-Seal device. RECOMMENDATIONS: With the patient's findings, probably the best method of revascularization would be surgical bypass including the diagonal branch of the LAD, the marginal branch of the circumflex and the posterior descending branch of the right coronary artery. A second opinion will be requested. The patient at this time is hemodynamically stable. [facility]
[2016-04-29] MEDS ORDERED: ULTRAM PO PRN (12:29)
[2016-04-29] MEDS ORDERED: MAALOX PLUS LIQUID PO PRN (12:45)
[2016-04-29] MEDS ORDERED: NS 1,000 ML IV SCH (13:00)
--- NOTE | 2016-04-29 14:42 | PROGRESS NOTE ---
DATE: 04/29/2016 TIME SEEN: 0820 hours. SUBJECTIVE: Ms. Valadez is resting quietly on the side of the bed. She has been n.p.o.. She did not receive her left heart cath yesterday and is due to have a left heart cath performed this a.m.. She denies chest pain or increased work of breathing at this time. Her most recent vital signs reveal a temperature of 97.8, blood pressure 111/73 , heart rate 102, and respirations 16. She is on 2 L nasal cannula. Last recorded saturation was 98%. She has had zero recorded in and she has had 2,500 off on hemodialysis yesterday. Her labs this a.m. revealed a sodium of 136, potassium 4.2, chloride 94, CO2 25 , BUN 25, creatinine 5.4, and glucose 155. Her anion gap is 17. Calcium is 8.8. Albumin is 2.7. She has a previous hemoglobin of 10.8 with a hematocrit of 34.6, white count of 5.9, and platelet count of 124,000. OBJECTIVE: General: This is a 56-year-old white female. She is resting on the side of the bed. She is in no acute distress. Skin: Warm and dry. HEENT: Normocephalic, atraumatic. Conjunctivae are pale. PERRL. Mucous membranes are moist. Neck: Supple. Trachea is midline. No JVD. Cardiovascular: Regular rate and rhythm. She has a positive systolic murmur. Lungs: Clear to auscultation anteriorly. Equal excursion. She is on room air. Abdomen: Soft, obese, and nontender. Positive bowel sounds. Genitourinary: Not inspected. Minimal void with dialysis assist. Extremities: 1 to 2+ edema up into the knee region with some chronic venous stasis. No clubbing or cyanosis. Integumentary: No rashes or lesions evident at this time. Neurological: Alert and oriented times 3. ASSESSMENT AND PLAN: 1. End-stage kidney disease. The patient is due for her routine dialysis treatment in the a.m.. She continues to be counseled on her fluid restriction and p.o. intake though she remains n.p.o. since midnight last night. 2. Electrolytes. These are stable. 3. Acid-base balance. This is stable. 4. Anemia. This is low but stable. 5. Chest pain. The patient is due for a left heart catheterization today per Dr. Negrete. No indication for any changes. I would like to thank you for allowing us to follow with this patient. Seen, data reviewed, discussed with Jorge Luis Gutierrez on 04/29/16. I agree with the above assessment and plan of care. rg Dictated by SORAIDA Cummins for Krzysztof Spicer MD [facility]
--- NOTE | 2016-04-29 15:38 | EKG Report ---
Test Performed on : 04/29/2016 12:13:18 PM Test Reason : post cath Blood Pressure : / mmHG Vent. Rate : 094 BPM Atrial Rate : 039 BPM P-R Int : 000 ms QRS Dur : 124 ms QT Int : 412 ms P-R-T Axes : 000 -20 110 degrees QTc Int : 515 ms Atrial fibrillation. Septal infarct (cited on or before 11-APR-2016) Abnormal ECG When compared with ECG of 17-APR-2016 19:43, Serial changes of Septal infarct present Confirmed by Anmol BOSCH, Ish Medrano ([id number]) on 04/29/2016 5:24:50 PM
--- NOTE | 2016-04-29 16:35 | PROGRESS NOTE ---
DATE: 04/29/2016 SUBJECTIVE: Today Ms. Valadez referred to be doing fine. Denies any chest pain. She just had a left heart cath which was grossly abnormal. OBJECTIVE: Vital signs: Blood pressure is 93/52, pulse of 110, respirations 19, temperature 98 degrees. General: Ms. Valadez is a 56-year-old female. She is in bed, not seemingly distressed. HEENT: Mucosa is pink and moist. Anicteric. Acyanotic. Neck: Supple. Chest: Good air entry bilateral. No crepitations. No rhonchi. Cardiovascular: Regular rate and rhythm. Abdomen: Soft, distended, but nontender. Extremities: No pedal edema. 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 There is no focal neurological deficit. LABORATORY DATA: WBC is 5.90, hemoglobin is 10.8, platelet count of 124,000. Chemistry is reviewed, consistent with endstage renal disease. The left heart catheterization report shows severe multivessel coronary artery disease. CURRENT MEDICATIONS: 1. [place]. 2. Aspirin. 3. Clopidogrel. 4. Diltiazem. 5. Isordil. 6. Ranexa. ASSESSMENT: 1. Multivessel coronary artery disease. 2. Status post cardiac arrest. 3. Congestive heart failure with ejection fraction of 25%. 4. Ischemic cardiomyopathy. 5. Atrial fibrillation, currently rate controlled. 6. End-stage renal disease on hemodialysis. General plan: The patient is relatively stable. We did a left heart cath which showed multivessel disease. Patient is pending to be transferred to [place] for intervention evaluation.
[2016-04-29 17:16] VITALS: BP 131/72
--- NOTE | 2016-04-30 05:32 | DISCHARGE SUMMARY ---
ADMISSION DATE: 04/11/2016 DISCHARGE DATE: 04/29/2016 DATE OF TRANSFER: 04/29/2016. DISPOSITION: [facility]. CONSULTATION DURING ADMISSION: 1. Cardiology was consulted. Patient was seen by Dr. Martinez and Dr. Negrete. 2. Nephrology was consulted. Patient was seen by Dr. Spicer. INVASIVE PROCEDURE DONE DURING THIS ADMISSION: A left heart catheterization was done which showed triple severe multi vessel coronary artery disease. ADMISSION DIAGNOSES: 1. Acute respiratory failure secondary to volume overload. 2. Possible pneumonia. 3. Acute respiratory failure. 4. Congestive heart failure. 5. End stage renal disease. DISCHARGE DIAGNOSES: 1. Multi-vessel coronary artery disease. 2. Status post cardiac arrest. 3. Congestive heart failure with ejection fraction of 25%. 4. Ischemic cardiomyopathy. 5. Atrial fibrillation. 6. Endstage renal disease. 7. Acute hypoxemic respiratory failure improved. 8. Aspiration pneumonia treated. PRESENTING COMPLAINT: Shortness of breath. HISTORY OF PRESENTING COMPLAINT: Ms Valadez is a 56-year-old female with a history of end stage renal disease who presented to [facility] due to shortness of breath. Upon presentation, patient was evaluated, however during the ER stay patient arrested from respiratory arrest and had to be intubated. The patient was subsequently transferred over here for further evaluation. HOSPITAL COURSE: Patient had a very lengthy hospital stay. She was intubated for a few days and successfully extubated. She was treated for aspiration pneumonia with antibiotics for some time and got dialysis during the whole hospital stay. Because her troponin's were elevated, Cardiology felt that there might be a cardiac event precipitating the cardiac arrest. Initial stress test was done, but they could not do the stress part of the test because of wheezing. Subsequently, a left heart catheterization was done which shows severe multi vessel disease. Cardiology consulted. We got in touch with the [place] colleagues and a decision was made to transfer the patient to [place] for intervention evaluation. Patient was therefore transferred to [place] in a very stable condition today. Please refer to the details of my progress note today. At the time of transfer, there was not any pending labs or imaging studies. TIME SPENT: Time spent for discharge was 36 minutes.
[2016-04-30 10:36] LABS: HEPATITIS PROFILE ACUTE SEE COMMENTS (())
--- NOTE | 2016-05-07 19:02 | DISCHARGE SUMMARY ---
ADMISSION DATE: 04/11/2016 DISCHARGE DATE: 04/29/2016 DISCHARGE SUMMARY ADDENDUM: DIAGNOSES: 1. Lactic acidosis likely secondary to hypoperfusion after the cardiac arrest. 2. Aspiration pneumonia of undetermined bacteriology.
== END 2016-04-29 17:42 | disposition short-term general hospital (02) | DRG 207 ==
LOC: P.ED 11:28 → ICU 13:58 → 3N 04-20 15:18 → 3S 04-29 10:23
PROVIDERS: ATTEND Internal Medicine
PROC: 5A1955Z Respiratory Ventilation, Greater than 96 Consecutive Hours (ICD-10-PCS; principal; 2016-04-11)
PROC: 5A12012 Performance of Cardiac Output, Single, Manual (ICD-10-PCS; 2016-04-11)
PROC: 0BH17EZ Insertion of Endotracheal Airway into Trachea, Via Natural or Artificial Opening (ICD-10-PCS; 2016-04-11)
PROC: 5A1D60Z (ICD-10-PCS; 2016-04-11)
PROC: 4A023N7 Measurement of Cardiac Sampling and Pressure, Left Heart, Percutaneous Approach (ICD-10-PCS; 2016-04-29)
PROC: B2111ZZ Fluoroscopy of Multiple Coronary Arteries using Low Osmolar Contrast (ICD-10-PCS; 2016-04-29)
PROC: B2151ZZ Fluoroscopy of Left Heart using Low Osmolar Contrast (ICD-10-PCS; 2016-04-29)
DX: J96.01 Acute respiratory failure with hypoxia (principal); I46.9 Cardiac arrest, cause unspecified; J69.0 Pneumonitis due to inhalation of food and vomit; I50.23 Acute on chronic systolic (congestive) heart failure; I12.0 Hypertensive chronic kidney disease with stage 5 chronic kidney disease or end stage renal disease; N18.6 End stage renal disease; I48.91 Unspecified atrial fibrillation; E87.2 Acidosis; T82.855A Stenosis of coronary artery stent, initial encounter; Z68.41 Body mass index [BMI] 40.0-44.9, adult; E11.22 Type 2 diabetes mellitus with diabetic chronic kidney disease; J96.02 Acute respiratory failure with hypercapnia; E66.01 Morbid (severe) obesity due to excess calories; I25.10 Atherosclerotic heart disease of native coronary artery without angina pectoris; I25.2 Old myocardial infarction; I25.5 Ischemic cardiomyopathy; D64.9 Anemia, unspecified; J44.9 Chronic obstructive pulmonary disease, unspecified; E78.5 Hyperlipidemia, unspecified; E03.9 Hypothyroidism, unspecified; K43.9 Ventral hernia without obstruction or gangrene; I44.7 Left bundle-branch block, unspecified; Z99.2 Dependence on renal dialysis; Z79.02 Long term (current) use of antithrombotics/antiplatelets; Z79.899 Other long term (current) drug therapy; Z79.82 Long term (current) use of aspirin; Z79.4 Long term (current) use of insulin; Z86.718 Personal history of other venous thrombosis and embolism; Z86.73 Personal history of transient ischemic attack (TIA), and cerebral infarction without residual deficits; Z95.810 Presence of automatic (implantable) cardiac defibrillator
CPT/HCPCS: 31500; 36415; 51702; 70450; 71010; 71020; 71275; 74000; 78451; 78452; 80053; 80069; 80074; 82550; 82553; 82805; 82948; 83036; 83605; 83735; 83880; 84484; 85025; 85027; 85379; 85610; 85730; 87040; 87070; 87205; 89220; 92950; 93005; 93010; 93306; 93458; 93970; 93971; 94003; 94640; 94660; 94761; 94762; 96365; 96366; 96375; A9500; C1760; C9113; J0171; J1200; J1644; J1650; J1815; J2060; J2175; J2250; J2543; J7030; J7050; Q9967; 97110-GP; 97116-GP; 97530-GP; 99285-25; S0164

== ENCOUNTER 2016-07-23 17:23 | Inpatient (IN) ==
[2016-07-23 20:39] LABS: ALBUMIN 2.5 g/dL (3.5-5.0); CALCIUM 8.4 mg/dL (8.8-10.2); POTASSIUM 3.9 mmol/L (3.5-5.1); TOTAL BILIRUBIN 0.78 mg/dL (0.20-1.00); TOTAL PROTEIN 7.4 g/dL (6.3-8.3)
[2016-07-23 20:41] LABS: BASO% 0.1 % (0.0-0.8); EOS% 0.5 % (0.0-10.0); HEMATOCRIT 35.1 % (37.0-47.0); HEMOGLOBIN 11.1 g/dL (12.0-16.0); IMM GRAN# 0.16 X1000 (0.0-0.04); IMM GRAN% 0.9 % (0.0-0.5); LYMPH# 1.31 X1000 (1.2-3.4); MANUAL DIFF NEEDED? NO; MCH 31.7 PG (27-31); MCHC 31.6 g/dL (33-37); MCV 100.3 FL (81-99); MONO% 6.4 % (1.7-9.3); MPV 11.8 FL (7.4-10.4); NEUT% 85.1 % (42.2-75.2); PLT 204 X1000 (130-400)
[2016-07-24 05:03] LABS: BASO% 0.2 % (0.0-0.8); EOS# 0.06 X1000 (0.0-0.7); EOS% 0.3 % (0.0-10.0); HEMATOCRIT 36.1 % (37.0-47.0); HEMOGLOBIN 11.4 g/dL (12.0-16.0); IMM GRAN# 0.27 X1000 (0.0-0.04); IMM GRAN% 1.4 % (0.0-0.5); LYMPH# 1.91 X1000 (1.2-3.4); LYMPH% 9.6 % (20.5-51.1); MANUAL DIFF NEEDED? YES; MCH 31.8 PG (27-31); MCHC 31.6 g/dL (33-37); MCV 100.8 FL (81-99); NEUT% 81.5 % (42.2-75.2); PLT 213 X1000 (130-400); RBC 3.58 XMIL (4.2-5.4)
[2016-07-24 05:18] LABS: CALCIUM 8.1 mg/dL (8.8-10.2); POTASSIUM 3.3 mmol/L (3.5-5.1)
[2016-07-24 05:32] LABS: BANDS 6 % (0-1); LYMPHS 14 % (21-51); MONO 2 % (1-9)
[2016-07-25 07:30] LABS: BASO% 0.3 % (0.0-0.8); EOS# 0.11 X1000 (0.0-0.7); EOS% 0.5 % (0.0-10.0); HEMATOCRIT 33.9 % (37.0-47.0); HEMOGLOBIN 10.5 g/dL (12.0-16.0); IMM GRAN# 0.48 X1000 (0.0-0.04); LYMPH# 3.31 X1000 (1.2-3.4); LYMPH% 13.6 % (20.5-51.1); MANUAL DIFF NEEDED? NO; MCH 31.8 PG (27-31); MCV 102.7 FL (81-99); MONO% 8.6 % (1.7-9.3); MPV 11.4 FL (7.4-10.4); PLT 220 X1000 (130-400)
[2016-07-25 07:55] LABS: CALCIUM 8.3 mg/dL (8.8-10.2); POTASSIUM 4.3 mmol/L (3.5-5.1)
[2016-07-26 06:41] LABS: ALBUMIN 1.9 g/dL (3.5-5.0); CALCIUM 8.2 mg/dL (8.8-10.2); POTASSIUM 4.4 mmol/L (3.5-5.1)
[2016-07-26 06:45] LABS: BASO% 0.2 % (0.0-0.8); EOS# 0.17 X1000 (0.0-0.7); HEMATOCRIT 33.1 % (37.0-47.0); HEMOGLOBIN 10.3 g/dL (12.0-16.0); IMM GRAN# 0.32 X1000 (0.0-0.04); IMM GRAN% 1.9 % (0.0-0.5); LYMPH# 1.72 X1000 (1.2-3.4); LYMPH% 10.2 % (20.5-51.1); MANUAL DIFF NEEDED? NO; MCH 31.2 PG (27-31); MCHC 31.1 g/dL (33-37); MCV 100.3 FL (81-99); MONO# 1.13 X1000 (0.11-0.59); MONO% 6.7 % (1.7-9.3); MPV 11.2 FL (7.4-10.4); PLT 210 X1000 (130-400)
[2016-07-27 05:31] LABS: ALBUMIN 2.1 g/dL (3.5-5.0); CALCIUM 8.5 mg/dL (8.8-10.2); POTASSIUM 4.8 mmol/L (3.5-5.1)
[2016-07-27 06:16] LABS: BASO% 0.4 % (0.0-0.8); EOS# 0.19 X1000 (0.0-0.7); EOS% 0.9 % (0.0-10.0); HEMOGLOBIN 11.9 g/dL (12.0-16.0); IMM GRAN# 0.43 X1000 (0.0-0.04); IMM GRAN% 2.1 % (0.0-0.5); LYMPH# 2.28 X1000 (1.2-3.4); LYMPH% 11.4 % (20.5-51.1); MANUAL DIFF NEEDED? YES; MCH 31.9 PG (27-31); MCHC 32.2 g/dL (33-37); MCV 99.2 FL (81-99); MONO# 1.48 X1000 (0.11-0.59); MONO% 7.4 % (1.7-9.3); MPV 11.2 FL (7.4-10.4); NEUT% 77.8 % (42.2-75.2); PLT 234 X1000 (130-400); RBC 3.73 XMIL (4.2-5.4)
[2016-07-28 07:51] LABS: BASO% 0.3 % (0.0-0.8); EOS# 0.27 X1000 (0.0-0.7); EOS% 1.5 % (0.0-10.0); HEMATOCRIT 35.2 % (37.0-47.0); HEMOGLOBIN 11.1 g/dL (12.0-16.0); LYMPH# 2.98 X1000 (1.2-3.4); LYMPH% 16.7 % (20.5-51.1); MCH 32.1 PG (27-31); MCHC 31.5 g/dL (33-37); MCV 101.7 FL (81-99); MONO# 1.74 X1000 (0.11-0.59); MONO% 9.8 % (1.7-9.3); MPV 11.6 FL (7.4-10.4); NEUT% 71.7 % (42.2-75.2); PLT 209 X1000 (130-400); RBC 3.46 XMIL (4.2-5.4)
[2016-07-28 08:26] LABS: ALBUMIN 2.2 g/dL (3.5-5.0); CALCIUM 8.4 mg/dL (8.8-10.2); POTASSIUM 4.8 mmol/L (3.5-5.1)
[2016-07-28 09:22] LABS: MANUAL DIFF NEEDED? NO
[2016-07-28 11:42] LABS: ALLEN TEST YES; BLOOD TYPE ARTERIAL; DRAW SITE L RADIAL; METHB 0.6 % (0.0-1.5); O2(CT) 14.9 mL/dL (15.0-23.0); PCO2(98.6) 43 mmHg (35-45); PO2(98.6) 76 mmHg (60-100); SAMPLE BLOOD; SAO2 95.5 % (95.0-100.0); THB 11.3 g/dL (11.5-17.4)
[2016-07-28 11:43] LABS: MODALITY CANNULA
[2016-07-28 12:53] LABS: CALCIUM 7.8 mg/dL (8.8-10.2); POTASSIUM 4.1 mmol/L (3.5-5.1)
[2016-07-29 06:27] LABS: BASO% 0.5 % (0.0-0.8); EOS# 0.14 X1000 (0.0-0.7); EOS% 0.8 % (0.0-10.0); HEMATOCRIT 34.1 % (37.0-47.0); HEMOGLOBIN 10.7 g/dL (12.0-16.0); IMM GRAN# 0.52 X1000 (0.0-0.04); IMM GRAN% 2.8 % (0.0-0.5); LYMPH# 2.32 X1000 (1.2-3.4); LYMPH% 12.7 % (20.5-51.1); MANUAL DIFF NEEDED? NO; MCH 31.3 PG (27-31); MCHC 31.4 g/dL (33-37); MCV 99.7 FL (81-99); MONO# 1.58 X1000 (0.11-0.59); MONO% 8.6 % (1.7-9.3); MPV 11.5 FL (7.4-10.4); NEUT% 74.6 % (42.2-75.2); PLT 204 X1000 (130-400); RBC 3.42 XMIL (4.2-5.4)
[2016-07-29 06:39] LABS: CALCIUM 8.2 mg/dL (8.8-10.2); POTASSIUM 4.8 mmol/L (3.5-5.1)
[2016-07-30 06:42] LABS: CALCIUM 8.3 mg/dL (8.8-10.2); POTASSIUM 4.7 mmol/L (3.5-5.1)
[2016-07-30 06:46] LABS: BASO% 0.5 % (0.0-0.8); EOS# 0.19 X1000 (0.0-0.7); EOS% 1.3 % (0.0-10.0); HEMATOCRIT 30.7 % (37.0-47.0); HEMOGLOBIN 9.4 g/dL (12.0-16.0); IMM GRAN# 0.39 X1000 (0.0-0.04); IMM GRAN% 2.8 % (0.0-0.5); LYMPH# 2.12 X1000 (1.2-3.4); MANUAL DIFF NEEDED? YES; MCH 31.1 PG (27-31); MCHC 30.6 g/dL (33-37); MCV 101.7 FL (81-99); MONO# 1.67 X1000 (0.11-0.59); MONO% 11.8 % (1.7-9.3); MPV 11.2 FL (7.4-10.4); NEUT% 68.6 % (42.2-75.2); PLT 183 X1000 (130-400); RBC 3.02 XMIL (4.2-5.4)
[2016-07-30 07:30] LABS: LYMPHS 16 % (21-51); MONO 7 % (1-9)
[2016-07-30 12:01] LABS: HEPATITIS PROFILE ACUTE SEE COMMENTS
[2016-07-31 05:03] LABS: MANUAL DIFF NEEDED? NO
[2016-07-31 05:21] LABS: BASO% 0.4 % (0.0-0.8); EOS# 0.23 X1000 (0.0-0.7); EOS% 1.6 % (0.0-10.0); HEMATOCRIT 31.3 % (37.0-47.0); HEMOGLOBIN 9.7 g/dL (12.0-16.0); IMM GRAN# 0.26 X1000 (0.0-0.04); IMM GRAN% 1.9 % (0.0-0.5); LYMPH# 2.01 X1000 (1.2-3.4); LYMPH% 14.4 % (20.5-51.1); MCH 31.1 PG (27-31); MCV 100.3 FL (81-99); MONO# 1.73 X1000 (0.11-0.59); MONO% 12.4 % (1.7-9.3); MPV 11.2 FL (7.4-10.4); NEUT% 69.3 % (42.2-75.2); PLT 188 X1000 (130-400); RBC 3.12 XMIL (4.2-5.4)
[2016-07-31 05:26] LABS: CALCIUM 7.8 mg/dL (8.8-10.2); POTASSIUM 4.4 mmol/L (3.5-5.1)
[2016-08-01 06:04] LABS: BASO% 0.4 % (0.0-0.8); EOS# 0.24 X1000 (0.0-0.7); EOS% 1.6 % (0.0-10.0); HEMATOCRIT 33.8 % (37.0-47.0); HEMOGLOBIN 10.3 g/dL (12.0-16.0); IMM GRAN# 0.22 X1000 (0.0-0.04); IMM GRAN% 1.4 % (0.0-0.5); LYMPH# 2.52 X1000 (1.2-3.4); LYMPH% 16.3 % (20.5-51.1); MANUAL DIFF NEEDED? YES; MCH 31.3 PG (27-31); MCHC 30.5 g/dL (33-37); MCV 102.7 FL (81-99); MONO# 1.57 X1000 (0.11-0.59); MONO% 10.1 % (1.7-9.3); MPV 11.7 FL (7.4-10.4); NEUT% 70.2 % (42.2-75.2); PLT 184 X1000 (130-400); RBC 3.29 XMIL (4.2-5.4)
[2016-08-01 06:20] LABS: ALBUMIN 2.3 g/dL (3.5-5.0); CALCIUM 7.8 mg/dL (8.8-10.2); POTASSIUM 4.7 mmol/L (3.5-5.1)
[2016-08-02 05:28] LABS: MANUAL DIFF NEEDED? NO
[2016-08-02 05:34] LABS: BASO% 0.4 % (0.0-0.8); EOS# 0.28 X1000 (0.0-0.7); EOS% 2.3 % (0.0-10.0); HEMATOCRIT 32.1 % (37.0-47.0); HEMOGLOBIN 9.9 g/dL (12.0-16.0); IMM GRAN# 0.15 X1000 (0.0-0.04); IMM GRAN% 1.2 % (0.0-0.5); LYMPH# 2.33 X1000 (1.2-3.4); LYMPH% 18.9 % (20.5-51.1); MCH 31.4 PG (27-31); MCHC 30.8 g/dL (33-37); MCV 101.9 FL (81-99); MONO# 1.29 X1000 (0.11-0.59); MONO% 10.5 % (1.7-9.3); MPV 11.2 FL (7.4-10.4); NEUT% 66.7 % (42.2-75.2); PLT 155 X1000 (130-400); RBC 3.15 XMIL (4.2-5.4)
[2016-08-02 05:59] LABS: ALBUMIN 2.1 g/dL (3.5-5.0); CALCIUM 7.9 mg/dL (8.8-10.2); POTASSIUM 4.2 mmol/L (3.5-5.1)
[2016-08-04 05:15] LABS: MANUAL DIFF NEEDED? NO
[2016-08-04 05:19] LABS: BASO% 0.8 % (0.0-0.8); EOS# 0.18 X1000 (0.0-0.7); EOS% 1.7 % (0.0-10.0); HEMATOCRIT 35.3 % (37.0-47.0); HEMOGLOBIN 11.1 g/dL (12.0-16.0); IMM GRAN# 0.13 X1000 (0.0-0.04); IMM GRAN% 1.2 % (0.0-0.5); LYMPH# 2.03 X1000 (1.2-3.4); LYMPH% 19.2 % (20.5-51.1); MCHC 31.4 g/dL (33-37); MCV 98.6 FL (81-99); MONO# 1.09 X1000 (0.11-0.59); MONO% 10.3 % (1.7-9.3); MPV 11.8 FL (7.4-10.4); NEUT% 66.8 % (42.2-75.2); PLT 160 X1000 (130-400); RBC 3.58 XMIL (4.2-5.4)
[2016-08-04 06:12] LABS: CALCIUM 8.3 mg/dL (8.8-10.2); POTASSIUM 4.7 mmol/L (3.5-5.1)
[2016-08-05 07:13] LABS: MANUAL DIFF NEEDED? NO
[2016-08-05 07:18] LABS: BASO% 0.4 % (0.0-0.8); EOS# 0.15 X1000 (0.0-0.7); EOS% 1.4 % (0.0-10.0); HEMOGLOBIN 10.6 g/dL (12.0-16.0); IMM GRAN# 0.11 X1000 (0.0-0.04); IMM GRAN% 1.1 % (0.0-0.5); LYMPH# 1.37 X1000 (1.2-3.4); LYMPH% 13.1 % (20.5-51.1); MCH 31.2 PG (27-31); MCHC 31.2 g/dL (33-37); MONO# 1.05 X1000 (0.11-0.59); MPV 11.6 FL (7.4-10.4); PLT 156 X1000 (130-400)
[2016-08-05 07:42] LABS: POTASSIUM 4.2 mmol/L (3.5-5.1)
[2016-08-06 05:05] LABS: MANUAL DIFF NEEDED? NO
[2016-08-06 05:39] LABS: POTASSIUM 4.1 mmol/L (3.5-5.1)
[2016-08-06 05:48] LABS: BASO% 0.5 % (0.0-0.8); EOS# 0.15 X1000 (0.0-0.7); EOS% 1.5 % (0.0-10.0); HEMATOCRIT 32.7 % (37.0-47.0); HEMOGLOBIN 10.5 g/dL (12.0-16.0); IMM GRAN# 0.07 X1000 (0.0-0.04); IMM GRAN% 0.7 % (0.0-0.5); LYMPH# 2.13 X1000 (1.2-3.4); LYMPH% 21.1 % (20.5-51.1); MCH 31.5 PG (27-31); MCHC 32.1 g/dL (33-37); MCV 98.2 FL (81-99); MONO# 1.13 X1000 (0.11-0.59); MONO% 11.2 % (1.7-9.3); MPV 11.6 FL (7.4-10.4); PLT 150 X1000 (130-400); RBC 3.33 XMIL (4.2-5.4)
[2016-08-07 08:03] VITALS: BP 128/73
== END 2016-08-07 15:30 ==
LOC: ED 17:23 → SUATTDRO 07-24 00:35 → 4N 07-24 00:35 → ICU 07-25 14:54 → 3N 07-28 10:13 → ICU 07-28 11:18 → 3S 08-01 16:37
PROVIDERS: ATTEND Internal Medicine

== ENCOUNTER 2016-11-11 09:08 | Observation (INO) ==
[2016-11-11 10:16] LABS: MANUAL DIFF NEEDED? NO
[2016-11-11 10:20] LABS: BASO% 0.1 % (0.0-0.8); HEMATOCRIT 35.3 % (37.0-47.0); HEMOGLOBIN 11.7 g/dL (12.0-16.0); IMM GRAN# 0.07 X1000 (0.0-0.04); IMM GRAN% 0.6 % (0.0-0.5); LYMPH# 1.05 X1000 (1.2-3.4); LYMPH% 9.3 % (20.5-51.1); MCH 29.8 PG (27-31); MCHC 33.1 g/dL (33-37); MCV 89.8 FL (81-99); MONO# 0.88 X1000 (0.11-0.59); MONO% 7.8 % (1.7-9.3); MPV 11.5 FL (7.4-10.4); NEUT% 82.2 % (42.2-75.2); PLT 136 X1000 (130-400); RBC 3.93 XMIL (4.2-5.4)
[2016-11-11 10:27] LABS: INR 1.13; PTT 31.9 Seconds (22.0-36.0)
[2016-11-11 10:51] LABS: ALBUMIN 2.9 g/dL (3.5-5.0); CALCIUM 8.6 mg/dL (8.8-10.2); POTASSIUM 5.2 mmol/L (3.5-5.1); TOTAL BILIRUBIN 0.53 mg/dL (0.20-1.00); TOTAL PROTEIN 6.9 g/dL (6.3-8.3)
[2016-11-11 11:29] LABS: URINE MICRO REVIEW NEEDED? NO; URINE SOURCE CATH
[2016-11-11 12:01] LABS: UR AMPHETAMINES QUAL PRESUMPTIVE POSITIVE (NONE DETECT); UR BARBITUATES QUAL NONE DETECTED (NONE DETECT); UR BENZODIAZEPIN QUAL NONE DETECTED (NONE DETECT); UR CANNABINOIDS QUAL NONE DETECTED (NONE DETECT); UR COCAINE QUAL NONE DETECTED (NONE DETECT); UR METHADONE QUAL NONE DETECTED (NONE DETECT); UR OPIATES QUAL NONE DETECTED (NONE DETECT); UR OXYCODONE QUAL NONE DETECTED (NONE DETECT); UR PCP QUAL NONE DETECTED (NONE DETECT)
[2016-11-11 12:11] LABS: COLOR YELLOW; TURBIDITY URINE TURBID (CLEAR)
[2016-11-11 12:12] LABS: BILIRUBIN URINE NEGATIVE (NEGATIVE); BLOOD URINE LARGE (NEGATIVE); GLUCOSE URINE NEGATIVE (NEGATIVE); LEUKOCYTES URINE LARGE (NEGATIVE); NITRITE URINE POSITIVE (NEGATIVE); PH URINE 6.5; PROTEIN URINE 300 mg/dL (NEGATIVE); SP GRAVITY URINE 1.015; UROBILINOGEN URINE NORMAL (NORMAL)
[2016-11-11 12:13] LABS: URINE CULTURE NEEDED? YES
[2016-11-11] MEDS ORDERED: NS 2,000 ML MISC PRN (12:13)
[2016-11-11] MEDS ORDERED: HEPARIN IV PRN (12:13)
[2016-11-11] MEDS ORDERED: TIGHT: 0.2 ML/HR MISC PRN (12:13)
[2016-11-11 12:14] LABS: URINE WBC TNTC /HPF (<10)
[2016-11-11] MEDS ORDERED: NS 2,000 ML ONE (12:14)
[2016-11-11] MEDS ORDERED: HEPARIN ONE (12:14)
[2016-11-11] MEDS: LEVAQUIN 250 MG in NS 50 ML IV SCH (16:10)
[2016-11-11] MEDS: HUMALOG SUBQ SCH ×2 (16:12→21:44)
[2016-11-11] MEDS: HEPARIN SUBQ SCH (21:43)
[2016-11-11] MEDS: CORDARONE PO SCH (22:10)
[2016-11-11] MEDS: COREG PO SCH (22:11)
[2016-11-12] MEDS: HUMALOG SUBQ SCH ×4 (06:35→22:52)
[2016-11-12 06:53] LABS: HEMATOCRIT 34.4 % (37.0-47.0); HEMOGLOBIN 11.3 g/dL (12.0-16.0); MCH 30.4 PG (27-31); MCHC 32.8 g/dL (33-37); MCV 92.5 FL (81-99); MPV 11.3 FL (7.4-10.4); RBC 3.72 XMIL (4.2-5.4)
[2016-11-12] MEDS ORDERED: SYNTHROID PO SCH (07:00)
[2016-11-12 07:34] LABS: ALBUMIN 2.8 g/dL (3.5-5.0); CALCIUM 8.8 mg/dL (8.8-10.2); POTASSIUM 4.1 mmol/L (3.5-5.1)
[2016-11-12] MEDS ORDERED: IMDUR PO SCH (09:00)
[2016-11-12] MEDS ORDERED: ASPIRIN EC PO SCH (09:00)
[2016-11-12] MEDS ORDERED: PHOSLO PO SCH (09:00)
[2016-11-12] MEDS ORDERED: PLAVIX PO SCH (09:00)
[2016-11-12] MEDS ORDERED: PRINIVIL PO SCH (09:00)
[2016-11-12] MEDS ORDERED: VITAMIN D PO SCH (09:00)
[2016-11-12] MEDS: CORDARONE PO SCH ×2 (09:41→22:00)
[2016-11-12] MEDS: COREG PO SCH ×2 (09:42→21:50)
[2016-11-12] MEDS: RANEXA PO SCH ×2 (09:43→22:00)
[2016-11-12] MEDS: HEPARIN SUBQ SCH ×2 (09:54→22:01)
[2016-11-12] MEDS: PERCOCET-5 PO PRN ×3 (14:08→23:35)
[2016-11-12] MEDS ORDERED: VANCOMYCIN 1 GM/NS 1 GM/250 ML IVPB IV ONE (14:16)
[2016-11-12] MEDS ORDERED: VANCOMYCIN 1 GM/NS 1 GM/250 ML IVPB IV SCH (14:30)
[2016-11-12] MEDS: LEVAQUIN 250 MG in NS 50 ML IV SCH (18:23)
[2016-11-12] MEDS ORDERED: PRAVACHOL PO SCH (21:00)
[2016-11-13 00:05] VITALS: BP 129/54
[2016-11-13] MEDS ORDERED: CULTURELLE PO SCH (09:00)
== END 2016-11-12 23:50 | disposition short-term general hospital (02) ==
LOC: EDIPHOLD 09:08 → ED 09:08 → 3N 11-12 11:53
PROVIDERS: ATTEND Internal Medicine